=== PATIENT | male | born 1955 | race Caucasian/White ===

== ENCOUNTER → 2017-09-16 01:22 | Outpatient (CLI) | payer OTHER, SELFPAY ==
--- NOTE | 2017-09-16 13:30 | SCREENCT_ITS ---
SYMPTOM/DIAGNOSIS: PERSONAL H/O NICOTENE DEPENDENCE, Z87.891, COPD, J44.9 LOW DOSE LUNG SCREENING CHEST CT: A noncontrast CT scan of the chest was performed according to the lung cancer screening protocol. Comparison examination is 10/02/16. There is atherosclerosis of the thoracic aorta but no aneurysmal dilatation is seen. Heart size is within normal limits. No significant pericardial effusion is present. Coronary artery calcifications are identified. No significant axillary, mediastinal or hilar adenopathy is seen on this noncontrast examination. No pleural effusion or pneumothorax is identified. The upper abdominal images show stones in the gallbladder. Severe centrilobular emphysematous changes are present in the lungs. No pulmonary nodules are identified. No acute infiltrates are seen. Degenerative changes are present in the spine. IMPRESSION: 1. No evidence of a pulmonary nodule. 2. Severe emphysematous changes in the lungs. 3. Cholelithiasis. cLung-RAD Category: Lung RADS Category 1- Negative
== END ==
PROVIDERS: PCP Nurse Practitioner; Visit Provider Internal Medicine
DX: Z12.2 Encounter for screening for malignant neoplasm of respiratory organs (principal); J44.9 Chronic obstructive pulmonary disease, unspecified; Z87.891 Personal history of nicotine dependence; J43.9 Emphysema, unspecified; K80.20 Calculus of gallbladder without cholecystitis without obstruction
CPT/HCPCS: G0297

== ENCOUNTER → 2017-09-17 07:50 | Outpatient (CLI) | payer OTHER, SELFPAY ==
[2017-09-17 09:12] LABS: Anion Gap 8.2 mmol/L (3-11); BUN 13 mg/dL (7-18); CO2 29.8 mmol/L (21.0-32.0); CREATININE 1.09 mg/dL (0.70-1.30); Calcium 9.2 mg/dL (8.5-10.1); Chloride 103 mmol/L (98-107); Cholesterol 165 mg/dL (50-200); Glucose 89 mg/dL (70-100); HDL Cholesterol 83 mg/dL (40-60); LDL CHOLESTEROL 65 mg/dL (<100); Sodium 141 mmol/L (136-145); Triglyceride 66 mg/dL (30-150)
== END ==
PROVIDERS: PCP Nurse Practitioner; Visit Provider Nurse Practitioner
DX: E78.5 Hyperlipidemia, unspecified (principal); I10 Essential (primary) hypertension; R79.9 Abnormal finding of blood chemistry, unspecified
CPT/HCPCS: 36415; 80048; 80061; 83721

== ENCOUNTER 2018-03-17 14:43 | Outpatient (CLI) | payer OTHER, SELFPAY ==
[2018-03-17 16:15] LABS: ALT 41 U/L (12-78); AST 29 U/L (15-37); Albumin 2.9 g/dL (3.4-5.0); Alkaline Phosphatase 123 U/L (46-116); Anion Gap 6.6 mmol/L (3-11); BUN 15 mg/dL (7-18); Bilirubin, Total 0.2 mg/dL (0.2-1.0); CO2 34.4 mmol/L (21.0-32.0); CREATININE 0.88 mg/dL (0.70-1.30); Calcium 9.2 mg/dL (8.5-10.1); Chloride 101 mmol/L (98-107); Creatine Kinase 82 U/L (39-308); Glucose 109 mg/dL (70-100); Potassium 3.3 mmol/L (3.5-5.1); Sodium 142 mmol/L (136-145); Total Protein 6.5 g/dL (6.4-8.2)
== END 2018-03-17 15:03 ==
PROVIDERS: PCP Nurse Practitioner; Visit Provider Nurse Practitioner
DX: I10 Essential (primary) hypertension (principal); R25.2 Cramp and spasm; J44.9 Chronic obstructive pulmonary disease, unspecified; Z79.899 Other long term (current) drug therapy
CPT/HCPCS: 36415; 80053; 82550; 83735

== ENCOUNTER 2018-04-11 10:35 | Outpatient (REF) | payer OTHER, SELFPAY ==
[2018-04-12 11:25] LABS: Campylobacter PCR SEE COMMENTS; Salmonella PCR SEE COMMENTS; Shiga Toxin PCR SEE COMMENTS; Shigella/Enteroinvasive Ecoli SEE COMMENTS
== END 2018-04-11 10:55 ==
LOC: LBN 10:35
PROVIDERS: PCP Nurse Practitioner; Visit Provider Nurse Practitioner
DX: R19.7 Diarrhea, unspecified (principal)
CPT/HCPCS: 87505; 83630; 87177; 87324

== ENCOUNTER 2018-04-11 12:40 | Outpatient (REF) | payer OTHER, SELFPAY | END 2018-04-11 13:00 | LOC: LBN 12:40 | PROVIDERS: PCP Nurse Practitioner; Visit Provider Nurse Practitioner | DX: R19.7 Diarrhea, unspecified (principal) ==

== ENCOUNTER 2018-04-16 10:15 | Outpatient (CLI) | payer OTHER, SELFPAY ==
[2018-04-16 11:38] LABS: Anion Gap 8.2 mmol/L (3-11); BUN 21 mg/dL (7-18); CO2 30.8 mmol/L (21.0-32.0); CREATININE 1.03 mg/dL (0.70-1.30); Calcium 9.6 mg/dL (8.5-10.1); Chloride 103 mmol/L (98-107); Glucose 94 mg/dL (70-100); Potassium 3.4 mmol/L (3.5-5.1); Sodium 142 mmol/L (136-145)
== END 2018-04-16 10:35 ==
PROVIDERS: PCP Nurse Practitioner; Visit Provider Nurse Practitioner
DX: E87.6 Hypokalemia (principal); R19.7 Diarrhea, unspecified
CPT/HCPCS: 36415; 80048

== ENCOUNTER 2018-09-18 01:28 | Outpatient (CLI) | payer OTHER, SELFPAY ==
--- NOTE | 2018-09-18 12:00 | DI.CTLCSR_ITS ---
SYMPTOM/DIAGNOSIS: NICOTINE DEPENDENCE, F17.[address] LOW DOSE LUNG CANCER SCREENING: CT examination of the chest was performed utilizing low dose lung cancer screening protocol. Images obtained through the upper abdomen show grossly unremarkable appearance of visualized portions of liver, spleen and adrenals. There are severe pulmonary emphysematous changes, predominantly centrilobular. There are areas of scarring in the right upper lobe posteriorly which appear essentially unchanged in comparison with previous examination of 09/16/2017. There is a new area of nodularity with somewhat irregular border measuring about 8 by 9 by 10 mm. in diameter in the left upper lobe. This was not present on the previous examination. No additional new intrapulmonary nodule is seen. No pleural effusion. No mediastinal or hilar adenopathy. Tracheobronchial tree appears intact. No pleural effusion is seen. CONCLUSION: New 8-10 mm. in diameter left upper lobe intrapulmonary nodule. Lung rads, category 4B, suspicious nodule. Additional diagnostic testing or tissue sampling recommended. PET CT or biopsy should be considered. Lung-RAD Category: Lung RADS Category 4B- Suspicious
== END 2018-09-18 01:48 ==
PROVIDERS: PCP Nurse Practitioner; Visit Provider Internal Medicine
DX: Z12.2 Encounter for screening for malignant neoplasm of respiratory organs (principal); F17.200 Nicotine dependence, unspecified, uncomplicated; R91.1 Solitary pulmonary nodule
CPT/HCPCS: G0297

== ENCOUNTER 2019-03-05 01:42 | Outpatient (CLI) | payer OTHER, SELFPAY ==
--- NOTE | 2019-03-05 09:20 | DI.RAD_ITS ---
EXAM: RF BARIUM SWALLOW CLINICAL HISTORY: H/O DIAPHRAGMATIC HERNIA, PERFORM ESOPHAGEAL MANOMETRY FOR EVIDENCE TECHNIQUE: 2D and realtime digital imaging was performed. Fluoro time: 124 sec, 10.1 mGy COMPARISON: CHEST 2 VIEWS PA,LAT from 06/11/2017 FINDINGS: Initial plain film of the chest reveals hyperinflated lungs suggesting underlying COPD. No infiltrat es, effusions or pneumothoraces are present. Esophagus: The esophagus is patent with no evidence for erosions, fold thickening, strictures, or ma sses. Tertiary contractions are appreciated. No gastroesophageal reflux was identified during the ex amination. There was a small hiatal hernia noted. There was no aspiration during the examination. IMPRESSION: Small hiatal hernia. No gastroesophageal reflux.
[2019-03-05] MEDS: Barium Sulfate 60% W/V 355 ML BTL PO (10:06)
== END 2019-03-05 02:02 ==
PROVIDERS: PCP Nurse Practitioner; Visit Provider Thoracic Surgery (Cardiothoracic Vascular Surgery)
DX: K44.9 Diaphragmatic hernia without obstruction or gangrene (principal); J44.9 Chronic obstructive pulmonary disease, unspecified
CPT/HCPCS: 74221; J3490

== ENCOUNTER 2019-03-23 01:24 | Outpatient (CLI) | payer OTHER, SELFPAY ==
--- NOTE | 2019-03-23 13:41 | DI.CT_ITS ---
EXAM: CT CHEST WO CLINICAL HISTORY: COPD, J44.9, REEVALUATE LT UPPER LOBE DENSITY TECHNIQUE: Noncontrast CT CHEST LUNG CANCER SCREEN from 09/18/2018 FINDINGS: There is an area of nodularity located at the branching point of vessels in the left upper lobe. Th e findings appear somewhat less prominent when compared with the previous exam. The findings may rep resent an area of scarring. Similar appearing scarring is seen in the right upper lobe both anterior ly and posteriorly. Severe underlying emphysematous changes are seen. There are no new nodules or a reas of infiltration. The aorta is calcified but normal in diameter. There are coronary artery calc ifications. The heart size is normal. No adenopathy is seen. There are no pleural or pericardial e ffusions. IMPRESSION: Stable appearance or slightly decreased prominence of an area of nodularity in the left upper lobe w hich may represent scarring at a vessel branch point. A six-month follow-up exam could be considered .
== END 2019-03-23 01:44 ==
PROVIDERS: PCP Nurse Practitioner; Visit Provider Internal Medicine
DX: J44.9 Chronic obstructive pulmonary disease, unspecified (principal); R91.8 Other nonspecific abnormal finding of lung field; J43.8 Other emphysema; J98.4 Other disorders of lung
CPT/HCPCS: 71250

== ENCOUNTER 2019-11-26 01:42 | Outpatient (CLI) | payer OTHER, MEDICARE, SELFPAY ==
--- NOTE | 2019-11-26 07:00 | DI.US_ITS ---
EXAM: US AAA SCREENING CLINICAL HISTORY: SCREENING FOR AAA,SMOKER,PERIPHERAL VASCULAR DISEASE,Z13.6 COMPARISON: No exams were available for comparison FINDINGS: Abdominal Aorta: Proximal: 2.4 x 2.5 cm Mid: 2.4 x 2.7 cm Distal: 2.1 x 1.9 cm Iliac's: Right: 1.1 x 1.1 cm Left: 1.1 x 1.1 cm Atherosclerosis. IMPRESSION: No evidence of abdominal aortic aneurysm. DATA REPOSITORY:
== END 2019-11-26 02:02 ==
PROVIDERS: PCP Nurse Practitioner; Visit Provider Family Medicine
DX: F17.210 Nicotine dependence, cigarettes, uncomplicated (principal); Z13.6 Encounter for screening for cardiovascular disorders
CPT/HCPCS: 76706

== ENCOUNTER 2020-03-24 01:29 | Outpatient (CLI) | payer OTHER, MEDICARE, SELFPAY ==
--- NOTE | 2020-03-24 | DI.CTLCSR_ITS ---
EXAM: CT CHEST LUNG CANCER SCREEN CLINICAL HISTORY: SCREENING FOR LUNG CA, FORMER SMOKER, Z87.891 TECHNIQUE: Imaging Protocol: Axial computed tomography images with coronal and sagittal reformatted images were created and reviewed COMPARISON: CT CT CHEST WO from 03/23/2019 FINDINGS: Tracheobronchial tree: Patent where visualized. Mediastinum and Mahnaz: No dominant adenopathy or fluid collection. Pulmonary parenchyma: No consolidation or dominant measurable mass. Severe emphysematous changes, gre atest in the upper lobes. Multi focal areas of scarring, greatest posteriorly in the right upper lob e... Lung Nodules: None. Pleura: No effusion or pneumothorax. Heart: The heart is not dilated. coronary artery calcifications are seen. Aorta: Thoracic aorta non-dilated. Calcification Upper abdomen: Cholelithiasis Bones: Degenerative disc changes. Soft Tissues: Unremarkable. IMPRESSION: No suspicious pulmonary nodules. Severe emphysematous changes and multifocal areas of scarring. Category Lung RADS Cat 1 - Negative: No nodules and definitely benign nodules Lung-RADS 1.0 CATEGORIES: Category 0 - Prior chest CT exam(s) being located for comparison. Category 1 - Annual screening in 12 months. No nodules or definitely benign nodules. Category 2 - Annual screening in 12 months. Benign appearance. Nodules with low likelihood of becomin g active cancer. Category 3 - 6-month follow-up. Probably benign. Short-term follow-up suggested. Nodules with low lik elihood of becoming active cancer. Category 4A - 3-month follow-up and CT/PET if >8 mm in size. Suspicious finding. Findings which requi re additional testing. Category 4B - Findings which require additional testing and tissue sampling. Suspicious finding. C Added to Any of the Above - History of prior lung cancer screening. S Added to Any of the Above - Significant unexpected other finding. RADIATION DOSE DELIVERED: 78.92mGy.cm Total DLP DATA REPOSITORY: All CT scans at this facility are submitted to the National Radiology Data Registry (NRDR) Dose Index Registry (DIR) with the [employer] (ACR). RADIATION OPTIMIZATION: All CT scans at this facility use at least one of these dose optimization te chniques: automated exposure control; mA and/or kV adjustment per patient size (includes targeted exa ms where dose is matched to clinical indication); or iterative reconstruction.
== END 2020-03-24 01:30 ==
LOC: DI 01:30
PROVIDERS: PCP Nurse Practitioner; Visit Provider Internal Medicine
DX: Z87.891 Personal history of nicotine dependence (principal)
CPT/HCPCS: 71271

== ENCOUNTER 2020-11-29 06:31 | Outpatient (CLI) | payer OTHER, MEDICARE, SELFPAY ==
[2020-11-29] MEDS: Inhaler, Assist Device 1 EACH MC (11:20)
[2020-11-29] MEDS: Albuterol HFA 18 GM 200 PUFF INH IH (11:20)
--- NOTE | 2020-11-29 17:19 | W.PFT ---
Date of service: 11/29/20 Time of Service: 10:05 Pulmonary Function Test Result Requesting Provider [place] Indications: COPD Interpretation Spirometry: There is very severe airflow limitation. There is a low FVC. There is a significant bronchodilator effect. Lung Volumes: There is evidence of severe air trapping and hyperinflation. Diffusion Capacity: The diffusion is reduced Airway Pressure: Airways resistance is elevated Impression Very severe airflow limitation with air trapping and hyperinflation as well as a reduced diffusion and a positive bronchodilator response. Note: When compared to 11/18/2020 the FEV1 and FVC have not significantly changed. Clinical Correlation therefore is recommended.
== END 2020-11-29 06:32 | disposition home or self-care (01) ==
PROVIDERS: PCP Nurse Practitioner; Visit Provider Student in an Organized Health Care Education/Training Program
DX: J44.9 Chronic obstructive pulmonary disease, unspecified (principal); R06.09 Other forms of dyspnea; Z72.0 Tobacco use; Z87.891 Personal history of nicotine dependence; Z57.5 Occupational exposure to toxic agents in other industries; R94.2 Abnormal results of pulmonary function studies
CPT/HCPCS: 94060; 94726; 94729

== ENCOUNTER 2020-12-02 01:57 | Outpatient (CLI) | payer OTHER, MEDICARE, SELFPAY ==
[2020-12-02 08:16] LABS: Abs Immature Grans 0.02 10^3/uL (0.0-0.06); Absolute Basophil Count 0.07 10^3/uL (0.0-0.2); Absolute Eosinophil Count 0.37 10^3/uL (0.0-0.7); Absolute Lymphocyte Count 1.91 10^3/uL (1.2-3.4); Absolute Monocyte Count 0.62 10^3/uL (0.1-0.8); Absolute Neutrophil Count 4.24 10^3/uL (1.2-6.7); Eosinophils % 5.1; HCT 41.8 % (40.0-50.0); HGB 13.8 g/dL (13.5-17.5); Immature Grans % 0.3; Lymphocytes % 26.4; MCH 29.5 pg (27.0-33.0); MCV 89.3 fL (80-95); MPV 9.2 fL (8.0-11.0); Monocytes % 8.6; Neutrophils % 58.6; Nucleated RBC 0 %; Platelet Count 282 10^3/uL (130-400); RBC 4.68 10^6/uL (4.36-5.78); RDW 12.6 % (11.8-14.1); RDW-SD 41.1 fL; WBC 7.23 10^3/uL (4.4-10.8)
[2020-12-02 08:44] LABS: Hemoglobin A1C 5.9 % (<5.7)
[2020-12-02 09:03] LABS: ALT 49 U/L (16-63); AST 29 U/L (15-37); Albumin 3.7 g/dL (3.4-5.0); Alkaline Phosphatase 100 U/L (46-116); Anion Gap 7.7 mmol/L (3-11); BUN 25 mg/dL (7-18); Bilirubin, Total 0.3 mg/dL (0.2-1.0); CO2 31.3 mmol/L (21.0-32.0); CREATININE 1.3 mg/dL (0.70-1.30); Calcium 9.2 mg/dL (8.5-10.1); Calculated LDL 75 mg/dL (<100); Chloride 105 mmol/L (98-107); Cholesterol 163 mg/dL (<200); Estimated GFR 55.23 (mL/min/1.73m2); Glucose 94 mg/dL (74-106); HDL Cholesterol 77 mg/dL (40-60); Potassium 3.5 mmol/L (3.5-5.1); Sodium 144 mmol/L (136-145); Total Protein 6.8 g/dL (6.4-8.2); Triglyceride 56 mg/dL (<150)
[2020-12-02 17:15] LABS: PSA, Screening <0.1 ng/mL (0.0-4.5)
== END 2020-12-02 01:58 | disposition home or self-care (01) ==
LOC: LBO 01:57
PROVIDERS: PCP Nurse Practitioner; Visit Provider Nurse Practitioner
DX: E78.5 Hyperlipidemia, unspecified (principal); R73.01 Impaired fasting glucose; I10 Essential (primary) hypertension; J45.909 Unspecified asthma, uncomplicated; Z85.46 Personal history of malignant neoplasm of prostate
CPT/HCPCS: 36415; 80053; 80061; 84153; 83036; 85025

== ENCOUNTER → 2021-04-11 21:27 | Outpatient (CLI) | payer OTHER, MEDICARE, SELFPAY ==
--- NOTE | 2021-04-11 14:15 | DI.RAD_ITS ---
Exam(s) XR RIBS RT W PA LAT CHEST EXAM: XR RIBS RT W PA LAT CHEST CLINICAL HISTORY: R lower rib pain after a fall R07.81 PLEURODYNIA TECHNIQUE: 2D digital imaging was performed. COMPARISON: CR,RF RF BARIUM SWALLOW from 03/05/2019 FINDINGS: MEDIASTINUM: Normal. HEART: Normal. PULMONARY VASCULATURE: Normal. LUNGS: Clear. The lungs are hyperinflated consistent with underlying COPD. PLEURAL SPACE: No pleural effusion or pneumothorax. BONE:Within normal limits for the patient's age. There is an orthopedic screw again seen in an old h ealed left clavicular fracture. RIGHT RIBS: Normal. OTHER FINDINGS:Normal. IMPRESSION: 1. No acute pulmonary findings. 2. Unremarkable right ribs. DATA REPOSITORY: RADIATION DOSE DELIVERED:
== END ==
PROVIDERS: PCP Nurse Practitioner; Visit Provider Family Medicine
DX: R07.81 Pleurodynia (principal); J44.9 Chronic obstructive pulmonary disease, unspecified
CPT/HCPCS: 71046; 71100

== ENCOUNTER 2021-08-03 19:54 | Inpatient (IN) | payer OTHER, MEDICARE, SELFPAY ==
[2021-08-03] VITALS (69 sets, daily range): BP systolic 116–201; BP diastolic 75–132; PULSE 73–122; RESP 21–34; TEMP 36.4; O2SAT 90–96
--- NOTE | 2021-08-03 20:15 | DI.CT_ITS ---
Exam(s) CT HEAD CERVICAL SPINE WO EXAM: CT HEAD CERVICAL SPINE WO CLINICAL HISTORY: fall, pain. TECHNIQUE: Imaging Protocol: Axial computed tomography images with coronal and sagittal reformatted images were created and reviewed COMPARISON: No exams were available for comparison FINDINGS: CT Head: Ventricles and Extra axial spaces: Normal in size and morphology for the patient's age. Hemorrhage: None. Cerebral parenchyma: Normal. Midline shift: None. Brainstem/Cerebellum: Normal. Calvarium: Normal. Visualized Paranasal sinuses/Mastoids: Clear. Soft Tissues: Unremarkable. CT Cervical Spine: Bones: No acute fracture or subluxation. Degenerative changes are seen in the spine. 2-3 mm anteroli sthesis of C2 on C3 is noted. Soft Tissues: Unremarkable. Lung Apices: There is a small left apical pneumothorax. Moderately severe centrilobular emphysematou s changes are seen in the lung apices. IMPRESSION: 1. No acute intracranial process. 2. No acute fracture or subluxation in the cervical spine. 3. Small left apical pneumothorax. RADIATION DOSE DELIVERED: 1,432.27mGy.cm Total DLP DATA REPOSITORY: All CT scans at this facility are submitted to the National Radiology Data Registry (NRDR) Dose Index Registry (DIR) with the [employer] (ACR). RADIATION OPTIMIZATION: All CT scans at this facility use at least one of these dose optimization te chniques: automated exposure control; mA and/or kV adjustment per patient size (includes targeted exa ms where dose is matched to clinical indication); or iterative reconstruction.
--- NOTE | 2021-08-03 20:15 | DI.CT_ITS ---
Exam(s) CT CHEST/ABD/PEL WO CT THORACIC LUMBAR SPINE REC EXAM: CT CHEST/ABD/PEL WO CLINICAL HISTORY: fall, pain TECHNIQUE: Imaging Protocol: Axial computed tomography images with coronal and sagittal reformatted images were created and reviewed COMPARISON: US ABDOMEN ULTRASOUND (P) from 12/01/[address] CHEST LUNG CANCER SCREEN from 03/27/[address] THORACIC LUMBAR SPINE REC from 08/03/2021 FINDINGS: CHEST: Tracheobronchial tree: Patent where visualized. Pulmonary parenchyma: No consolidation or dominant measurable mass. Marked centrilobular emphysematou s changes are present. There is unchanged scarring in the posterior aspect of the right upper lobe. Mediastinum and Mahnaz: No dominant adenopathy or fluid collection. The esophagus is unremarkable. Thyroid gland: Unremarkable. Pleura: There is a small left pleural effusion. There is a large left pneumothorax. No right pneumoth orax or pleural effusion is present. Heart: The heart is not dilated. Coronary artery calcifications are present. No pericardial effusion. Aorta: Thoracic aorta non-dilated. Atherosclerosis. Lymph nodes: Within normal limits. Bones:Within normal limits for the patient's age. Old healed right rib fractures are present. There are multiple acute mildly displaced left rib fractures seen laterally and posteriorly. Soft tissues: Subcutaneous emphysema is seen along the left lateral chest wall. Thoracic spine recons: No acute fracture or subluxation is seen in the thoracic spine. ABDOMEN: Liver: Normal density. No measurable mass. Gallbladder and Biliary Tract: Cholelithiasis. No biliary ductal dilatation. Pancreas: Normal density, no abnormal calcifications or inflammatory process. Spleen: Normal. Adrenals: No masses seen. Kidneys: Normal size, contour and axis. No radiodense stones or obstructive uropathy. There are hypod ensities seen in both kidneys likely reflecting cysts. Abdominal Aorta: Abdominal portion non-dilated. Atherosclerosis is present. Bowel: There is no evidence of obstruction or wall thickening. There is diverticulosis seen in the co gasper, but no evidence of acute diverticulitis. There is a left inguinal hernia containing an unremarka ble loop of sigmoid colon. No evidence of obstruction is seen. There is a right inguinal hernia conta ining an unremarkable loop of small bowel. No evidence of obstruction or strangulation. Appendix is u nremarkable. Peritoneal Cavity: No ascites, collection or mesenteric inflammatory response. No free air. Lymph Nodes: Within normal limits. Bones: Within normal limits for the patient's age. Postsurgical changes are seen at L4 and L5. Soft Tissues: There is edema seen in the soft tissues along the left lateral abdominal wall which may represent a contusion. Lumbar spine recons: Degenerative changes are seen in the lumbar spine. No acute fracture or subluxat ion. Postsurgical changes are seen at L4 and L5. PELVIS: Bladder: Symmetric distention, no gross wall thickening. Reproductive Organs: Unremarkable as visualized. Lymph Nodes: Within normal limits. Bones: Within normal limits for the patient's age. IMPRESSION: 1. There is a large left pleural effusion. 2. There are multiple left rib fractures. Subcutaneous emphysema is seen in the left chest wall. 3. Small left pleural effusion. 4. Infiltration in the soft tissues along the left posterolateral wall which may represent a contusio n. 5. No acute abdominal pelvic organ injury. 6. No acute fracture or subluxation in the thoracic or lumbar spine. RADIATION DOSE DELIVERED: 768.41 mGy.cm Total DLP 768.41 mGy.cm Total DLP DATA REPOSITORY: All CT scans at this facility are submitted to the National Radiology Data Registry (NRDR) Dose Index Registry (DIR) with the [employer] (ACR). RADIATION OPTIMIZATION: All CT scans at this facility use at least one of these dose optimization te chniques: automated exposure control; mA and/or kV adjustment per patient size (includes targeted exa ms where dose is matched to clinical indication); or iterative reconstruction.
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
[2021-08-03 20:34] LABS: Abs Immature Grans 0.13 10^3/uL (0.0-0.06); Absolute Basophil Count 0.13 10^3/uL (0.0-0.2); Absolute Monocyte Count 1.07 10^3/uL (0.1-0.8); Absolute Neutrophil Count 17.89 10^3/uL (1.2-6.7); Basophils % 0.6; Eosinophils % 0.9; HCT 44.6 % (40.0-50.0); HGB 14.7 g/dL (13.5-17.5); Immature Grans % 0.6; Lymphocytes % 7.9; MCH 30.2 pg (27.0-33.0); MCV 92 fL (80-95); MPV 9.5 fL (8.0-11.0); Monocytes % 5.1; Neutrophils % 84.9; Platelet Count 293 10^3/uL (130-400); RBC 4.86 10^6/uL (4.36-5.78); RDW 12.6 % (11.8-14.1); RDW-SD 42.6 fL; WBC 21.07 10^3/uL (4.4-10.8)
[2021-08-03] MEDS: HYDROmorphone 2 MG/ML VIAL 1 MG IVP (20:34)
[2021-08-03] MEDS: Normal Saline Flush 10 ML SYR IVP ×2 (20:34→21:35)
[2021-08-03] MEDS: Normal Saline 1,000 ML 1000 ML IV (20:34)
[2021-08-03 20:38] LABS: Absolute Eosinophil Count 0.19 10^3/uL (0.0-0.7); Absolute Lymphocyte Count 1.66 10^3/uL (1.2-3.4)
[2021-08-03 20:44] LABS: ALT 43 U/L (16-63); AST 35 U/L (15-37); Alkaline Phosphatase 107 U/L (46-116); Anion Gap 6.7 mmol/L (3-11); BUN 25 mg/dL (7-18); Bilirubin, Total 0.4 mg/dL (0.2-1.0); CO2 31.3 mmol/L (21.0-32.0); Calcium 9.2 mg/dL (8.5-10.1); Chloride 100 mmol/L (98-107); Glucose 153 mg/dL (74-106); Potassium 3.5 mmol/L (3.5-5.1); Sodium 138 mmol/L (136-145); Total Protein 7.9 g/dL (6.4-8.2)
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
[2021-08-03] MEDS: HYDROmorphone 2 MG/ML VIAL 0.5 MG IVP (21:32)
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
--- NOTE | 2021-08-03 21:58 | NUR.NOTE ---
Pt sating 84% on Nc at 6L. This nurse placed pt on nrb at 10L, pt sating 95%. Lucinda SOTELO and MD Taylor aware,
--- NOTE | 2021-08-03 22:15 | DI.RAD_ITS ---
Exam(s) XR PORTABLE CHEST AP EXAM: XR PORTABLE CHEST AP CLINICAL HISTORY: s/p chest tube TECHNIQUE: 2D digital imaging was performed of the chest. One image was obtained. An AP view was ob tained. COMPARISON: CT CT THORACIC LUMBAR SPINE REC from 08/03/2021 FINDINGS: MEDIASTINUM: Normal. HEART: Normal. PULMONARY VASCULATURE: Normal. LUNGS: There is atelectasis in the left lung base. A left chest tube has been placed. There has bee n a significant decrease in size of the left pneumothorax. There does appear to be a tiny persistent pneumothorax present. PLEURAL SPACE: No pleural effusion. No right pneumothorax. BONE:Left rib fractures are present. OTHER FINDINGS:Subcutaneous air is seen along the left lateral chest wall. IMPRESSION: Interval placement of a left chest tube with significant decrease in size of the left pneumothorax. DATA REPOSITORY: RADIATION DOSE DELIVERED:
--- NOTE | 2021-08-03 23:07 | DI.VRAD_ITS ---
PROCEDURE INFORMATION: Exam: XR Chest Exam date and time: 08/03/2021 10:28 PM Age: 66 years old Clinical indication: Device placement; Chest tube TECHNIQUE: Imaging protocol: Radiologic exam of the chest. Views: 1 view. COMPARISON: CT CHEST/ABD/PEL WO 08/03/2021 8:59 PM FINDINGS: Lungs: Minimal stranded densities are seen laterally in the lower left lung field with no other consolidation or collapse detected. Pleural spaces: Significant interval decrease in left-sided pneumothorax following left-sided chest tube placement with small amounts of residual gas seen in the pleural space at the lateral left lung base. Heart/Mediastinum: Heart size is normal and vessel margins are sharply defined. Bones/joints: Chronic posttraumatic deformity noted involving the left clavicle. IMPRESSION: Significant interval decrease in left-sided pneumothorax following chest tube placement as above. Dictated and Authenticated by: Patrice Bullard MD. Ordering:ROBERTO Clayton MD
[2021-08-03 23:14] LABS: Source Nasal/Nares
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
[2021-08-03 23:59] LABS: Abs Immature Grans 0.11 10^3/uL (0.0-0.06); Absolute Lymphocyte Count 0.67 10^3/uL (1.2-3.4); Basophils % 0.3; Eosinophils % 0.1; HGB 13.3 g/dL (13.5-17.5); Immature Grans % 0.6; Lymphocytes % 3.7; MCH 30.4 pg (27.0-33.0); MCHC 32.4 % (32.0-36.0); MCV 94 fL (80-95); MPV 9.4 fL (8.0-11.0); Monocytes % 6.8; Neutrophils % 88.5; Platelet Count 225 10^3/uL (130-400); RBC 4.38 10^6/uL (4.36-5.78); RDW 12.5 % (11.8-14.1); RDW-SD 43.3 fL; WBC 18.12 10^3/uL (4.4-10.8)
[2021-08-04] VITALS (35 sets, daily range): BP systolic 88–153; BP diastolic 59–103; PULSE 74–111; RESP 2–24; TEMP 36.6–37.1; O2SAT 2–98; BMI 22.6
[2021-08-04 00:04] LABS: COVID-19 PCR Negative (Negative)
[2021-08-04 00:05] LABS: Absolute Basophil Count 0.05 10^3/uL (0.0-0.2); Absolute Eosinophil Count 0.02 10^3/uL (0.0-0.7); Absolute Monocyte Count 1.23 10^3/uL (0.1-0.8); Absolute Neutrophil Count 16.04 10^3/uL (1.2-6.7)
[2021-08-04 00:08] LABS: Anion Gap 4.1 mmol/L (3-11); BUN 26 mg/dL (7-18); CO2 31.9 mmol/L (21.0-32.0); CREATININE 1.2 mg/dL (0.70-1.30); Calcium 8.9 mg/dL (8.5-10.1); Chloride 103 mmol/L (98-107); Glucose 124 mg/dL (74-106); Potassium 4.4 mmol/L (3.5-5.1); Sodium 139 mmol/L (136-145)
[2021-08-04] MEDS: MORPHine 2 MG/ML SYR IVP ×3 (01:42→07:54)
[2021-08-04] MEDS: Acetaminophen 500 MG TAB 1000 MG PO ×4 (01:42→23:40)
[2021-08-04] MEDS: traZODone 100 MG TAB PO (01:42)
[2021-08-04] MEDS: Ondansetron 4 MG/2 ML VIAL IVP (01:42)
[2021-08-04] MEDS: Albuterol/Ipratropium 3 ML UPD VIAL UPD ×4 (01:43→23:41)
[2021-08-04] MEDS: Normal Saline Flush 10 ML SYR IVP ×5 (01:52→18:29)
[2021-08-04] MEDS: Normal Saline 1,000 ML 75 ML IV (03:44)
[2021-08-04] MEDS: traMADol 50 MG TAB PO (05:19)
[2021-08-04] MEDS: Ketorolac 15 MG/ML VIAL IVP ×4 (05:19→23:39)
[2021-08-04 06:49] LABS: Abs Immature Grans 0.04 10^3/uL (0.0-0.06); Absolute Basophil Count 0.05 10^3/uL (0.0-0.2); Absolute Eosinophil Count 0.01 10^3/uL (0.0-0.7); Absolute Lymphocyte Count 0.91 10^3/uL (1.2-3.4); Absolute Monocyte Count 0.87 10^3/uL (0.1-0.8); Absolute Neutrophil Count 9.37 10^3/uL (1.2-6.7); Basophils % 0.4; Eosinophils % 0.1; Immature Grans % 0.4; Lymphocytes % 8.1; MCH 29.6 pg (27.0-33.0); MCHC 31.6 % (32.0-36.0); MCV 94 fL (80-95); MPV 9.8 fL (8.0-11.0); Monocytes % 7.7; Neutrophils % 83.3; Platelet Count 211 10^3/uL (130-400); RBC 4.06 10^6/uL (4.36-5.78); RDW 12.8 % (11.8-14.1); RDW-SD 44.1 fL; WBC 11.25 10^3/uL (4.4-10.8)
[2021-08-04 07:08] LABS: Creatine Kinase 389 U/L (39-308)
[2021-08-04 07:19] LABS: Ferritin 81 ng/mL (26-388)
--- NOTE | 2021-08-04 08:31 | DI.RAD_ITS ---
Exam(s) XR CHEST 2V PA LATERAL EXAM: XR CHEST 2V PA LATERAL CLINICAL HISTORY: ptx TECHNIQUE: 2D digital imaging was performed of the chest. Two images were obtained. PA and lateral views were obtained. COMPARISON: CR,XR XR PORTABLE CHEST AP from 08/03/2021 FINDINGS: MEDIASTINUM: Normal. HEART: Normal. PULMONARY VASCULATURE: Normal. LUNGS: The left chest tube is in place. It is been slightly retracted compared to the examination fr om 08/03/2021. No demonstrable left pneumothorax is present. Atelectasis is seen in the lung bases b ilaterally. PLEURAL SPACE: No pleural effusion or pneumothorax. BONE:Within normal limits for the patient's age. OTHER FINDINGS:Subcutaneous gas is again seen along the left chest wall. IMPRESSION: Slight retraction of the left chest tube. No demonstrable pneumothorax. DATA REPOSITORY: RADIATION DOSE DELIVERED:
[2021-08-04] MEDS: Pantoprazole 40 MG TABCR PO (08:53)
[2021-08-04] MEDS: Verapamil C.R. 180 MG TABCR 360 MG PO (08:53)
[2021-08-04] MEDS: Escitalopram 10 MG TAB PO (08:53)
[2021-08-04] MEDS: Roflumilast 500 MCG TAB PO (08:54)
[2021-08-04] MEDS: Heparin 5,000 UNITS/ML VIAL 5000 UNITS SC ×2 (08:54→20:20)
--- NOTE | 2021-08-04 13:15 | DI.RAD_ITS ---
Exam(s) XR PORTABLE CHEST AP EXAM: XR PORTABLE CHEST AP CLINICAL HISTORY: chest tube disconnection TECHNIQUE: 2D digital imaging was performed of the chest. One image was obtained. An AP view was ob tained. COMPARISON: CR,XR XR PORTABLE CHEST AP from 08/03/2021 CR XR CHEST 2V PA LATERAL from 08/04/2021 FINDINGS: MEDIASTINUM: Normal. HEART: Normal. PULMONARY VASCULATURE: Normal. LUNGS: No focal consolidating infiltrates. PLEURAL SPACE: There does appear to be a very tiny left apical pneumothorax present. No right pneumo thorax or pleural effusion. BONE:Within normal limits for the patient's age. Left rib fractures are again seen. OTHER FINDINGS:The left chest tube appears to have been repositioned. Subcutaneous emphysema is agai n seen in the left lateral chest wall. IMPRESSION: Very tiny left apical pneumothorax. DATA REPOSITORY: RADIATION DOSE DELIVERED:
--- NOTE | 2021-08-04 14:06 | PDOC.ANES ---
Date of service: 08/04/21 Time of Service: 14:00 Anesthesia Note Report Anesthesia Note: Asked by Dr. Amaya to see and evaluate patient for erector spinae plane blocks for rib pain associated with recent traumatic fall. Patient met at bedside, and appeared to be resting comfortably. Discussed intervention of JESSICA blocks for pain control and discussed and risks and benefits at length with the patient given his pulmonary comorbidities. At this time, patient politely declines blocks, but was encouraged to reach out to surgery or anesthesia over the weekend if his wishes changed. Dr. Gilmore informed of patient's decision.
--- NOTE | 2021-08-04 15:20 | ANES.PREOP_ITS ---
General Info Date of Service Date Performed: 08/04/21 Height: 5 ft 4 in Weight: 59.87 kg Body Mass Index (BMI): 22.6 Meds Allergies and Home Medications Allergies Allergy/AdvReac Type Severity Reaction Status Date / Time Carbonic Anhydrase Inhibitors Allergy Unknown unknown Verified 08/03/21 20:10 propranolol HCl Allergy Unknown unknown Verified 08/03/21 20:10 [From Inderal LA] benzonatate AdvReac Intermediate palpitation Verified 08/03/21 20:10 s levofloxacin AdvReac Intermediate diarrhea Verified 08/03/21 20:10 prednisone AdvReac Intermediate high dose Verified 08/03/21 20:10 causes anxiety,insomnia, increased HR Sulfa (Sulfonamide AdvReac Intermediate GI cramps Verified 08/03/21 20:10 Antibiotics) Home Medication Medication Instructions Recorded triamcinolone acetonide 0.1 % 30 gm topical BID ##2 07/30/14 topical cream sildenafil 100 mg tablet (Viagra) 100 mg PO DAILY PRN #25 tabs 09/23/17 aspirin 81 mg tablet,delayed 81 mg PO DAILY 03/17/18 release multivitamin 1 tab PO DAILY 04/08/18 albuterol sulfate 1.25 mg/3 mL 1.25 mg (3 mL) inhalation QID PRN 06/16/19 solution for nebulization shortness of breath or wheezing #90 mL nebulizer and compressor #1 ea 10/10/20 Oxygen l inhalation PRN PRN ##1 10/18/20 acetaminophen 500 mg tablet 500 mg PO BID PRN 10/18/20 albuterol sulfate 90 mcg/actuation 2 puff inhalation Q4H PRN #2 puffs 10/18/20 aerosol inhaler doxycycline hyclate 100 mg 100 mg PO BID PRN copd flare #14 11/22/20 tablet,delayed release tabs escitalopram oxalate 10 mg tablet 10 mg PO DAILY #90 tab-caps 12/20/20 lorazepam 0.5 mg tablet 0.5 mg PO BID PRN dyspnea #60 tabs 01/30/21 fluticasone propionate 50 50 mcg NS DAILY #16 grams 03/03/21 mcg/actuation nasal spray,suspension omeprazole 20 mg tablet,delayed 20 mg PO DAILY #90 tabs 03/22/21 release tramadol 50 mg tablet 50 mg PO Q8H PRN pain #20 tabs 04/11/21 hydrochlorothiazide 25 mg tablet 25 mg PO DAILY #90 tab-caps 04/12/21 simvastatin 5 mg tablet 5 mg PO DAILY #90 tab-caps 04/12/21 roflumilast 500 mcg tablet 500 mcg PO DAILY #30 tabs 04/18/21 (Daliresp) dexamethasone 1 mg tablet 1 mg PO DAILY PRN SOB #12 tabs 04/24/21 tiotropium 2.5 mcg-olodaterol 2.5 2 inh inhalation DAILY #4 grams 05/15/21 mcg/actuation mist for inhalation (Stiolto Respimat) ipratropium 0.5 mg-albuterol 3 mg 3 ml UPD Q6H #180 mL 07/26/21 (2.5 mg base)/3 mL nebulization soln meloxicam 15 mg tablet 15 mg PO DAILY #30 tabs 07/31/21 verapamil 360 mg 24 hr 360 mg PO DAILY #90 caps 07/31/21 capsule,extended release Current Visit Medications: Current Medications Generic Name Dose Route Start Last Admin Trade Name Freq PRN Reason Stop Dose Admin Acetaminophen 1,000 mg 08/04/21 00:00 08/04/21 08:53 Acetaminophen 500 Mg Tab PO 1,000 mg Q8H MERLENE Administration Albuterol Sulfate 2.5 mg 08/03/21 23:36 Albuterol 2.5 Mg/3 Ml Inh Soln Vial UPD Q4H PRN PRN Albuterol Sulfate 2 puff 08/03/21 23:45 Albuterol Hfa 8 Gm 60 Puff Inh IH Q4H PRN PRN Albuterol/Ipratropium 3 ml 08/03/21 23:45 08/04/21 12:06 Albuterol/Ipratropium 3 Ml Upd Vial UPD 3 ml Q6H MERLENE Administration Device 1 each 08/03/21 23:45 Inhaler, Assist Device DIRECTED [facility] Escitalopram Oxalate 10 mg 08/04/21 08:30 08/04/21 08:53 Escitalopram 10 Mg Tab PO 10 mg DAILY MERLENE Administration Gabapentin 100 mg 08/04/21 14:00 Gabapentin 100 Mg Cap PO TID MERLENE Heparin Sodium (Porcine) 5,000 units 08/04/21 08:00 08/04/21 08:54 Heparin 5,000 Units/Ml Vial SC 5,000 units Q12H MERLENE Administration Sodium Chloride 500 mls @ 0 mls/hr 08/03/21 23:36 Saline 500ml Bag IV PRN PRN As Directed IV Miscellaneous Supplies 1 each 08/03/21 23:45 Iv Access IV DIRECTED MERLENE Ketorolac Tromethamine 15 mg 08/03/21 06:00 08/04/21 12:13 Ketorolac 15 Mg/Ml Vial IVP 08/08/21 05:59 15 mg Q6H MELRENE Administration Lidocaine 2 patch 08/04/21 08:30 08/04/21 09:00 Lidocaine 5% Patch TP Not Given DAILY MERLENE Lorazepam 0.5 mg 08/03/21 23:59 Lorazepam 0.5 Mg Tab PO BID PRN PRN dyspnea Metaxalone 800 mg 08/03/21 23:52 Metaxalone 800 Mg Tab PO TID PRN PRN Miscellaneous 2 each 08/04/21 20:00 Lidocaine Patch Removal TP Q24H MERLENE Morphine Sulfate 2 mg 08/03/21 23:36 08/04/21 07:54 Morphine 2 Mg/Ml Syr IVP 2 mg Q1H PRN PRN Administration Ondansetron HCl 4 mg 08/03/21 23:36 08/04/21 01:42 Ondansetron 4 Mg/2 Ml Vial IVP 4 mg Q4H PRN PRN Administration Pantoprazole Sodium 40 mg 08/04/21 08:30 08/04/21 08:53 Pantoprazole 40 Mg Tabcr PO 40 mg DAILY MERLENE Administration Polyethylene Glycol 17 gm 08/04/21 08:30 08/04/21 08:54 Polyethylene Glycol 3350 17 Gm Packet PO Not Given DAILY MERLENE Psyllium Hydrophilic Mucilloid 1 each 08/04/21 08:30 08/04/21 08:54 Psyllium Pkt PO Not Given DAILY [facility] Roflumilast 500 mcg 08/04/21 08:30 08/04/21 08:54 Roflumilast 500 Mcg Tab PO 500 mcg DAILY MERLENE Administration Sodium Chloride 0 ml 08/03/21 23:36 08/04/21 12:13 Normal Saline Flush 10 Ml Syr IVP 10 ml PRN PRN Administration Tramadol HCl 50 mg 08/03/21 23:52 08/04/21 05:19 Tramadol 50 Mg Tab PO 50 mg Q4H PRN PRN Administration Trazodone HCl 100 mg 08/03/21 23:41 08/04/21 01:42 Trazodone 100 Mg Tab PO 100 mg HS PRN PRN Administration Sleep Verapamil HCl 360 mg 08/04/21 08:30 08/04/21 08:53 Verapamil C.R. 180 Mg Tabcr PO 360 mg DAILY MERLENE Administration PFSH Active Problems Active Problems: Problem Status Onset Code Fall W19.XXXA Blunt head trauma S09.8XXA Blunt trauma of multiple sites of trunk T07.XXXA Pneumothorax on left J93.9 Multiple fractures of ribs of left side S22.42XA Pleural nodule R22.2 Rib pain on right side R07.81 Nicotine dependence, cigarettes, uncomplicated F17.210 Lung nodule R91.1 Pulmonary hypertension I27.20 Encounter for screening for malignant neoplasm of lung in former smoker who quit in past 15 years with 30 pack year history or greater Z12.2, Z87.891 History of prostate cancer Z85.46 Supplemental oxygen dependent Z99.81 Former smoker Z87.891 Screening for AAA (abdominal aortic aneurysm) Z13.6 POLST (Physician Orders for Life-Sustaining Treatment) Z78.9 Right facial numbness R20.0 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 BRANHMA Tobacco Smoking/Tobacco Use Status: Current-Occasional Tobacco Type: cigarettes Counseling given: provider counseling and counseling >10 minutes Alcohol Alcohol Intake: former Substance Use Substance use: Never Substance use type: does not use Vital Signs and Lab Results Vital Signs Most Recent Vital Signs in EMR: Most Recent Vital Signs Temp Pulse Resp BP Pulse Ox 36.9 C 89 18 109/70 94 08/04/21 14:50 08/04/21 14:50 08/04/21 14:50 08/04/21 14:50 08/04/21 14:50 Lab Results Result Diagrams: 08/04/21 06:02 08/03/21 23:51 Blood Type / Crossmatch: No Data to Display Complete Blood Count: White Blood Count 11.25 10^3/uL (4.4-10.8) H 08/04/21 06:02 Red Blood Count 4.06 10^6/uL (4.36-5.78) L 08/04/21 06:02 Hemoglobin 12.0 g/dL (13.5-17.5) L 08/04/21 06:02 Hematocrit 38.0 % (40.0-50.0) L 08/04/21 06:02 Platelet Count 211 10^3/uL (130-400) 08/04/21 06:02 Complete Metabolic Panel: Sodium Level 139 mmol/L (136-145) 08/03/21 23:51 Potassium Level 4.4 mmol/L (3.5-5.1) 08/03/21 23:51 Chloride Level 103 mmol/L (98-107) 08/03/21 23:51 Carbon Dioxide Level 31.9 mmol/L (21.0-32.0) 08/03/21 23:51 Blood Urea Nitrogen 26 mg/dL (7-18) H 08/03/21 23:51 Creatinine 1.2 mg/dL (0.70-1.30) 08/03/21 23:51 Estimated GFR/1.73 m2 >= 60.00 (mL/min/1.73m2) 08/03/21 23:51 Magnesium Level 2.0 mg/dL (1.8-2.4) 08/04/21 06:02 Calcium Level 8.9 mg/dL (8.5-10.1) 08/03/21 23:51 Albumin 4.0 g/dL (3.4-5.0) 08/03/21 20:25 Glucose Level 124 mg/dL (74-106) H 08/03/21 23:51 Liver Function Panel: Alanine Aminotransferase (ALT/SGPT) 43 U/L (16-63) 08/03/21 20: 25 Aspartate Amino Transf (AST/SGOT) 35 U/L (15-37) 08/03/21 20:25 Coagulation Panel: No Data to Display Cardiac Panel: Creatine Kinase 389 U/L (39-308) H 08/04/21 Arterial Blood Gas: No Data to Display Venous Blood Gas: No Data to Display Pancreas Panel: No Data to Display Thyroid Panel: No Data to Display Infectious Disease: Coronavirus (COVID-19)(PCR) Negative (Negative) 08/03/21 23:10 Coronavirus 2019 Source Nasal/Nares 08/03/21 23:10 Blood Cultures: No Data to Display Toxicology Panel: No Data to Display Anesthesia Assessment and Plan Anesthesia History Personal History: No History of Anesthesia Complications Family History: No Family History of Anesthesia Complications Exercise Tolerance Exercise Tolerance: Metabolic Equivalents<4 Pertinent Negatives Pertinent Negatives: No Symptoms of GERD, No Major Cardiovascular Symptoms or Complaints and No History of CVA/TIA Cardiac & Pulmonary Exam Cardiac Exam: Normal S1/S2 Heart Sounds Pulmonary Exam: Clear Bilateral Breath Sounds (left more diminished than right shallow breathes) Implantable Cardiac Device Does patient have a Pacemaker or an ICD?: No Airway Exam Known Difficult Airway: No Mallampati Class: 2 Mouth Opening: Normal (> 3cm) Thyromental Distance: Greater than 3 cm Neck Range of Motion: Full ROM Neck Circumference: Normal Teeth Condition: Normal Dentition ASA Classification ASA Score: ASA 3 Emergency Case?: Yes NPO Status NPO Status: Full Stomach Anesthesia Plan Resuscitation Status: Full Code Anesthesia Technique: Primary Nerve Block (Due to recent trauma, requested by general surgery. ) Airway Planned: Natural Airway Pain Management: Surgeon and patient request nerve block Monitors Used: Standard Monitors and POCUS
--- NOTE | 2021-08-04 16:10 | W.ANESNERVE ---
Nerve Block Single Injection Procedure Date and Time Date Performed: 08/04/21 Procedure Start: 15:54 Location Where Procedure Performed Procedure Location: Med/Surg (227) Reason Performed: Acute Pain Management Pain Diagnosis: Chest Pain, Rib Pain and Flank Pain Requesting Provider: Leah Amaya Timeout Performed Timeout Performed: Yes Monitoring Used Blood Pressure and SpO2 Sterility Sterility: Hand Hygiene, Surgical Cap, Surgical Mask, Sterile Gloves and Chlorhexidine Sedation Given During Procedure Sedation Given (Indicate Dose Given): No Sedation given Patient Mental Status Patient Mental Status: Awake Nerve Block 1st Nerve Block: Laterality: Left Block Type: Erector Spinae (Upper) (middle) Needle / Catheter Used: 100mm SonoPlex II Local Anesthetic Bolus (Indicate Dose Given): Lidocaine used for local infiltration of skin, Injected in 3-5ml increments after negative blood aspiration, Bupivacaine 0.25% Dose:: 20 ml and Exparel Dose:: 20 ml Additives (Indicate Dose Given): None Ultrasound: Sterile probe cover and gel used Ultrasound Image Saved?: Yes Nerve Stimulator: Not Used Paresthesia: None Post Procedure Pain score (0-10): 5 Procedure Tolerated: No Complications and Patient tolerated well Procedure Outcome: Successful Performed By: Edson Alicea
[2021-08-04] MEDS: Gabapentin 100 MG CAP PO ×2 (17:05→20:20)
--- NOTE | 2021-08-04 17:15 | W.PM.PROGNOT ---
Date of Service Date of service: 08/04/21 Time of Service: 15:15 Assessment and Plan Assessment and plan (1) Fall: Status: Acute (2) Blunt head trauma: Status: Acute (3) Blunt trauma of multiple sites of trunk: Status: Acute (4) Pneumothorax on left: Status: Acute Assessment and plan: -s/p chest tube placement by ER -Rib block today -PRN and scheduled anesthetics -AM chest x-ray reviewed; PM chest x-ray reviewed - repositioned? -Supplemental oxygen -Incentive spirometer use -Ambulation encouraged -PT/OT (5) Multiple fractures of ribs of left side: Status: Acute (6) Rib pain on right side: Status: Acute (7) Nicotine dependence, cigarettes, uncomplicated: Status: Acute (8) Lung nodule: Status: Acute (9) Pulmonary hypertension: Status: Acute (10) History of prostate cancer: Status: Acute (11) End stage chronic obstructive pulmonary disease: (12) IFG (impaired fasting glucose): (13) PVD (peripheral vascular disease): (14) Tobacco dependence: (15) Trigeminal neuralgia of right side of face: (16) Screening for AAA (abdominal aortic aneurysm): Status: Acute (17) Essential hypertension: Status: None (18) Ineffective esophageal motility: Status: Acute (19) Barretts esophagus: Status: Acute (20) Diaphragmatic hernia without obstruction or gangrene: Status: Acute (21) Low back pain with left-sided sciatica: Status: Acute (22) Erectile dysfunction: Status: Acute (23) Psoriasis with arthropathy: Status: Chronic (24) Hyperlipidemia: Status: Chronic (25) Peripheral vascular disease: Status: Chronic (26) Allergic rhinitis: Status: Chronic Subjective Subjective Patient reports: no new complaints, feels better, tolerating a regular diet and afebrile Exam Const General: no acute distress Orientation: alert HENMT Head: normal to inspection Ears: external ears normal General nose exam: external nose normal Mouth: moist mucous membranes Eyes General: appearance normal, both eyes and all related structures Neck Neck: normal visual inspection Resp Effort & Inspection: normal respiratory effort, able to speak in complete sentences and other (left sided chest tube in place no air leak) GI Palpation: soft and nontender Back/Spine/Pelvis Back: No ecchymosis Skin General skin exam: no rashes or lesions noted Neuro General: patient alert and patient oriented x3 Extrem General: normal to inspection Psych Mental Status: mental status grossly normal Objective Last Vital Signs Temp 98.4 F 08/04/21 14:50 Pulse 89 08/04/21 14:50 Resp 18 08/04/21 14:50 BP 109/70 08/04/21 14:50 Pulse Ox 94 08/04/21 14:50 Laboratory Results - last 24 hr 08/03/21 08/03/21 08/03/21 20:25 20:25 23:10 WBC 21.07 H RBC 4.86 Hgb 14.7 Hct 44.6 MCV 92 MCH 30.2 MCHC 33.0 RDW 12.6 Plt Count 293 MPV 9.5 Immature Gran % 0.6 Neutrophils % 84.9 Lymphocytes % 7.9 Monocytes % 5.1 Eosinophils % 0.9 Basophils % 0.6 Nucleated RBC % 0.0 Absolute Neutrophils 17.89 H Absolute Lymphocytes 1.66 Absolute Monocytes 1.07 H Absolute Eosinophils 0.19 Absolute Basophils 0.13 Sodium 138 Potassium 3.5 Chloride 100 Carbon Dioxide 31.3 Anion Gap 6.7 BUN 25 H Creatinine 1.0 Estimated GFR/1.73 m2 >= 60.00 Glucose 153 H Calcium 9.2 Magnesium Ferritin Total Bilirubin 0.4 AST 35 ALT 43 Alkaline Phosphatase 107 Creatine Kinase Total Protein 7.9 Albumin 4.0 COVID-19 Source Nasal/Nares SARS-CoV-2 (PCR) Negative 08/03/21 08/03/21 08/04/21 23:51 23:51 06:02 WBC 18.12 H RBC 4.38 Hgb 13.3 L Hct 41.0 MCV 94 MCH 30.4 MCHC 32.4 RDW 12.5 Plt Count 225 MPV 9.4 Immature Gran % 0.6 Neutrophils % 88.5 Lymphocytes % 3.7 Monocytes % 6.8 Eosinophils % 0.1 Basophils % 0.3 Nucleated RBC % 0.0 Absolute Neutrophils 16.04 H Absolute Lymphocytes 0.67 L Absolute Monocytes 1.23 H Absolute Eosinophils 0.02 Absolute Basophils 0.05 Sodium 139 Potassium 4.4 Chloride 103 Carbon Dioxide 31.9 Anion Gap 4.1 BUN 26 H Creatinine 1.2 Estimated GFR/1.73 m2 >= 60.00 Glucose 124 H Calcium 8.9 Magnesium Ferritin 81 Total Bilirubin AST ALT Alkaline Phosphatase Creatine Kinase Total Protein Albumin COVID-19 Source SARS-CoV-2 (PCR) 08/04/21 08/04/21 06:02 06:02 WBC 11.25 H RBC 4.06 L Hgb 12.0 L Hct 38.0 L MCV 94 MCH 29.6 MCHC 31.6 L D RDW 12.8 Plt Count 211 MPV 9.8 Immature Gran % 0.4 Neutrophils % 83.3 Lymphocytes % 8.1 Monocytes % 7.7 Eosinophils % 0.1 Basophils % 0.4 Nucleated RBC % 0.0 Absolute Neutrophils 9.37 H Absolute Lymphocytes 0.91 L Absolute Monocytes 0.87 H Absolute Eosinophils 0.01 Absolute Basophils 0.05 Sodium Potassium Chloride Carbon Dioxide Anion Gap BUN Creatinine Estimated GFR/1.73 m2 Glucose Calcium Magnesium 2.0 Ferritin Total Bilirubin AST ALT Alkaline Phosphatase Creatine Kinase 389 H Total Protein Albumin COVID-19 Source SARS-CoV-2 (PCR)
--- NOTE | 2021-08-04 18:29 | INITIAL_ITS ---
- If Service Date Differs Date of service: 08/04/21 Time of Service: 18:30 Care Management Initial Assess REASON FOR HOSPITALIZATION:: Blunt chest trauma, Rib FX, PTX PAST MEDICAL HISTORY/PAST SURGICAL HISTORY:: Patient fell off his 3 [address] and onto his left chest. He sustained multiple rib fractures and a pneumothorax. Chest tube was placed by the ER. C-spine was cleared by the ED. I did review all his CT scans. He will be admitted for pain management, close nursing observation and pulmonary toilet. Medical History (Updated 08/03/21 @ 21:40 by Forrest Taylor MD). End stage chronic obstructive pulmonary disease. IFG (impaired fasting glucose). PVD (peripheral vascular disease). Tobacco dependence. Trigeminal neuralgia of right side of face. Surgical History . collar bone surgery. Colonoscopy - MAC (05/03/17). L4-S1 laminectomy w/ rgt sided L4-5 fusion (06/20/15). Prostatectomy (~2008). ca. Repair, Rotator Cuff (03/14/16). RIGHT/ DR. BRANHAM PREVIOUS FUNCTIONAL STATUS/SOCIAL/FAMILY SUPPORTS:: 66 yo man who lives with his Seble in their home in [place]. They have 2 adult children and many grandchildren. He is now retired, but independent in community. He does use O2 at home prn. ADVANCE DIRECTIVES:: On file, [employer] as agent. Has patient been provided with info about the portal/API?: Yes Did the patient sign up for the portal?: Yes CODE STATUS:: DNR/DNI INSURANCE COVERAGE / FINANCIAL ISSUES:: [employer] [facility] CURRENT HOME/COMMUNITY SERVICES/EQUIPMENT:: Has nebulizer and O2 at home through [employer]. PRIMARY CARE PHYSICIAN:: Carline Muñiz POTENTIAL DISCHARGE NEEDS:: Follow up appointments. PATIENT/FAMILY EDUCATION NEEDS:: Review of discharge instructions, discuss Ask Me Three. ANTICIPATED BARRIERS TO DISCHARGE:: None identified. TRANSPORTATION:: Via private vehicle with . PLAN:: Anticipate Justin will return home once his pain is managed and he is medically cleared per MD. He will follow up with community providers and transport via private vehicle.
[2021-08-04] MEDS: LORazepam 0.5 MG TAB PO (21:46)
[2021-08-04] MEDS: Normal Saline 500 ML IV (21:46)
[2021-08-05] VITALS (54 sets, daily range): BP systolic 66–126; BP diastolic 37–77; PULSE 79–117; RESP 8–31; TEMP 37.1–37.2; O2SAT 15–100
[2021-08-05] MEDS: Ketorolac 15 MG/ML VIAL IVP (04:55)
[2021-08-05] MEDS: Albuterol/Ipratropium 3 ML UPD VIAL UPD (04:55)
[2021-08-05] MEDS: MORPHine 2 MG/ML SYR IVP (06:36)
[2021-08-05] MEDS: traMADol 50 MG TAB PO (06:37)
[2021-08-05] MEDS: Normal Saline Flush 10 ML SYR IVP (06:38)
[2021-08-05] MEDS: Normal Saline 1,000 ML 1000 ML IV (07:30)
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
[2021-08-05 07:50] LABS: BE -1 mmol/L (-2-3); HCO3 26 mmol/L (22-26); pCO2 58 mmHg (35-45); pH 7.26 (7.35-7.45); pO2 84 mmHg (80-105); sO2 96 % (95-98); tCO2 25 mmol/L (23-27)
--- NOTE | 2021-08-05 07:51 | W.PM.PROGNOT ---
Date of Service Date of service: 08/05/21 Time of Service: 07:52 Assessment and Plan Assessment and plan (1) Fall: Status: Acute (2) Blunt head trauma: Status: Acute (3) Blunt trauma of multiple sites of trunk: Status: Acute (4) Pneumothorax on left: Status: Acute Assessment and plan: -s/p chest tube placement by ER -AM chest x-ray with new hemothorax, no recurrent pneumothorax -Transfer to ICU; consult with [facility] for transfer -2 units uncrossed blood to be transfused STAT as no active type and screen was done prior -Appreciate hospitalist assistance; full labs pending -Rib block yesterday by anesthesia -PRN and scheduled anesthetics; hold toradol, mobic and heparin -Code status: COLST form full code; previously listed as DNR/DNI (5) Multiple fractures of ribs of left side: Status: Acute (6) Rib pain on right side: Status: Acute (7) Nicotine dependence, cigarettes, uncomplicated: Status: Acute (8) Lung nodule: Status: Acute (9) Pulmonary hypertension: Status: Acute (10) History of prostate cancer: Status: Acute (11) End stage chronic obstructive pulmonary disease: (12) IFG (impaired fasting glucose): (13) PVD (peripheral vascular disease): (14) Tobacco dependence: (15) Trigeminal neuralgia of right side of face: (16) Screening for AAA (abdominal aortic aneurysm): Status: Acute (17) Essential hypertension: Status: None (18) Ineffective esophageal motility: Status: Acute (19) Barretts esophagus: Status: Acute (20) Diaphragmatic hernia without obstruction or gangrene: Status: Acute (21) Low back pain with left-sided sciatica: Status: Acute (22) Erectile dysfunction: Status: Acute (23) Psoriasis with arthropathy: Status: Chronic (24) Hyperlipidemia: Status: Chronic (25) Peripheral vascular disease: Status: Chronic (26) Allergic rhinitis: Status: Chronic Subjective Subjective Interval history since last seen: called by hospitalist who was not consulted in regard to patient's worsening condition; >500cc blood from chest tube, desaturation to the 70-80's, requested STAT chest x-ray and chest tube tray to bedside Exam Const General: cooperative, acute distress moderate and respiratory, in distress moderate and respiratory, frail appearing and ill appearing Nutritional Appearance: thin HENMT Head: normal to inspection, normocephalic and atraumatic Chest Chest: abnormal inspection of the chest other (ecchymosis ), crepitus, tenderness and other (ecchymosis left posteriolateral chest wall) Resp Effort & Inspection: labored, respiratory distress, tachypneic and other (left chest tube with >500cc bloody drainage in the last hour) Cardio Rate: regular rate Rhythm: regular rhythm Skin General skin exam: ecchymosis (diffuse, worsening over left lateral chest wall) and other (chest tube in place) Neuro General: patient alert, patient awake and patient oriented x3 Objective Last Vital Signs Temp 99.0 F 08/05/21 03:25 Pulse 79 08/05/21 03:25 Resp 20 08/05/21 05:17 BP 126/77 08/05/21 05:26 Pulse Ox 96 08/05/21 05:17
[2021-08-05 07:52] LABS: FIO2 NRB %; FIO2L 15 L; Site Left Radial
--- NOTE | 2021-08-05 07:57 | PT.INNT ---
PT Notes Visit Reasons: Blunt Chest Trauma/Rib FX/PTX PT consult cancelled due to change in medical status.
--- NOTE | 2021-08-05 07:58 | W.EVENT ---
Date of service: 08/05/21 Time of Service: 07:58 Event Note: Responded to nursing notification of the patient getting acutely hypoxic to O2 sats in the 70s, dyspneic/tachypneic. 10 minutes prior, there was new bloody chest tube output noted, in total 325 cc so far. Stat CXR ordered. New pleural effusion observed at L base/L diaphragmatic border. The patient was placed on a nonrebreather. I notified Dr Goins who arrived at bedside. Patient is being transferred to the ICU. Stat labs ordered. The patient is also hypotensive with SBP in the 70s. He sometimes takes dexamethasone at home. Will give a bolus of dexamethasone 4 mg IV. Type and screen ordered for anticipated transfusion. Time Spent with Patient Time spent in critical care(minutes): 35 Time Spent Included: Coordination of care, Chart review, Documenting critically ill care, Time at immediate bedside, Discussing critically ill care with other medical staff and Discussing Hx and/or treatment with family
[2021-08-05] MEDS: Dexamethasone 4 MG/ML VIAL (08:00)
[2021-08-05 08:18] LABS: Abs Immature Grans 0.08 10^3/uL (0.0-0.06); Absolute Basophil Count 0.06 10^3/uL (0.0-0.2); Absolute Eosinophil Count 0.16 10^3/uL (0.0-0.7); Absolute Lymphocyte Count 1.19 10^3/uL (1.2-3.4); Basophils % 0.4; HCT 27.6 % (40.0-50.0); HGB 8.6 g/dL (13.5-17.5); Immature Grans % 0.5; Lymphocytes % 7.6; MCH 29.9 pg (27.0-33.0); MCHC 31.2 % (32.0-36.0); MCV 96 fL (80-95); MPV 9.7 fL (8.0-11.0); Monocytes % 6.3; Neutrophils % 84.2; Platelet Count 188 10^3/uL (130-400); RBC 2.88 10^6/uL (4.36-5.78); RDW 12.6 % (11.8-14.1); RDW-SD 43.9 fL; WBC 15.68 10^3/uL (4.4-10.8)
[2021-08-05 08:19] LABS: Absolute Monocyte Count 0.99 10^3/uL (0.1-0.8)
[2021-08-05 08:26] LABS: Anion Gap 6.3 mmol/L (3-11); BUN 40 mg/dL (7-18); CO2 26.7 mmol/L (21.0-32.0); CREATININE 1.6 mg/dL (0.70-1.30); Calcium 7.9 mg/dL (8.5-10.1); Chloride 107 mmol/L (98-107); Estimated GFR 43.33 (mL/min/1.73m2); Glucose 115 mg/dL (74-106); Potassium 4.1 mmol/L (3.5-5.1); Sodium 140 mmol/L (136-145)
--- NOTE | 2021-08-05 08:30 | DI.RAD_ITS ---
Exam(s) XR PORTABLE CHEST AP EXAM: XR PORTABLE CHEST AP CLINICAL HISTORY: ptx. TECHNIQUE: 2D digital imaging was performed. COMPARISON: CR XR PORTABLE CHEST AP from 08/04/2021 FINDINGS: Single AP portable view. Left large caliber chest tube is unchanged in position. Multiple displaced left-sided rib fractures are noted and there is now a prominent pleural based left-sided density consistent with pleural hemat ochoa-loculated pleural effusion adjacent to the displaced left-sided rib fractures. There is no pneum othorax. However, there is increasing infiltrate in the left lung base, either related to lung contu mars or infiltrate resulting from poor aeration in the left lower lobe. Subcutaneous emphysema over the left chest wall has not increased from yesterday. Heart size is upper normal. The mediastinum is not widened. \ IMPRESSION: Worsening left-sided findings as described above. Prominent pleural based density now evident which is most probably loculated pleural effusion-hematoma adjacent to the multiple displaced rib fractures . There is also infiltrate now developed in the left lower lobe as well as some independent layering left pleural effusion. There is no pneumothorax. Position of the left chest tube is unchanged. DATA REPOSITORY: RADIATION DOSE DELIVERED: All CT scans at this facility use at least one of these dose optimization techniques: automated exposure control; mA and/or kV adjustment per patient size (includes targeted e xams where dose is matched to clinical indication); or iterative reconstruction.
[2021-08-05 08:32] LABS: Lactate 1.4 mmol/L (0.6-1.4); Prothrombin Time 10.4 sec (9.3-11.0)
[2021-08-05 08:35] LABS: Diff Comment RBC Morph Reviewed; RBC Morphology Normal
--- NOTE | 2021-08-05 08:37 | DSE_ITS ---
Date of service: 08/05/21 Time of Service: 08:39 DS: Diagnosis Discharge Diagnosis (1) Traumatic hemo-pneumothorax: Status: Acute Asessment and Plan: -Chest tube in place, taken off suction as recommended by [facility] [place] [place]; >1L EBL meets criteria for thoracotomy -Transfuse 2 Units uncrossed blood STAT -DART transport to [facility] [place] [place], accepted in SICU Dr. Joiner -Full code on COLST; updated in chart and bedside. DART landing at 9am; will intubate. -2 additional units to be given en route -NRB with humidified oxygen -Chest tube to waterseal (2) Fall: Status: Acute (3) Blunt head trauma: Status: Acute (4) Blunt trauma of multiple sites of trunk: Status: Acute (5) Pneumothorax on left: Status: Acute (6) Multiple fractures of ribs of left side: Status: Acute (7) Rib pain on right side: Status: Acute (8) Nicotine dependence, cigarettes, uncomplicated: Status: Acute (9) Lung nodule: Status: Acute (10) Pulmonary hypertension: Status: Acute (11) History of prostate cancer: Status: Acute (12) End stage chronic obstructive pulmonary disease: (13) IFG (impaired fasting glucose): (14) PVD (peripheral vascular disease): (15) Tobacco dependence: (16) Trigeminal neuralgia of right side of face: (17) Screening for AAA (abdominal aortic aneurysm): Status: Acute (18) Essential hypertension: Status: None (19) Ineffective esophageal motility: Status: Acute (20) Barretts esophagus: Status: Acute (21) Diaphragmatic hernia without obstruction or gangrene: Status: Acute (22) Low back pain with left-sided sciatica: Status: Acute (23) Erectile dysfunction: Status: Acute (24) Psoriasis with arthropathy: Status: Chronic (25) Hyperlipidemia: Status: Chronic (26) Peripheral vascular disease: Status: Chronic (27) Allergic rhinitis: Status: Chronic Discharge Plan Disposition Patient Disposition: [facility] Condition: Serious Discharge Details Reason For Visit: Blunt Chest Trauma/Rib FX/PTX Admit Date/Time: 08/03/21 23:46 Admit Provider: Leah Amaya Attending Provider: Leah Amaya Primary Care Provider: Carline Muñiz Hospital Course Hospital Course: Patient was admitted to the hospital after coming to the ER after falling off of a [address] He underwent full CT scans revealing multiple left sided rib fractures as well as large left pneumothorax and likely hemothorax. A chest tube was placed by the ER and pneumothorax resolved. Yesterday his chest tube was repositioned by another provider and subsequent x-ray was taken. He also underwent rib block yesterday with anesthesia. He received a 500cc bolus last night 08/04 for blood pressure in the 90's systolic but otherwiese asymptomatic. This morning he acutely decompensated having significant bloody drainage from the chest tube >1L in about 45 minutes and continuing. He did not have any active type and cross so 2 units uncrossed blood was ordered. STAT chest x ray revealed chest tube was in place, hemothorax but no recurrent pneumothorax. He was transferred to our ICU for resusscitation. [facility] [place] [place] trauma was consulted for transfer and patient was accepted. All images were pushed to [facility] [place] [place]. DART is picking up patient and will intubate for transfer, 2 units PRBC and FFP will be available for them. Chest tube is on waterseal. Patient's remained at the bedside throughout the entire encounter. COLST form FULL CODE. Code status changed in computer. 60 minutes spent on critical care time and at bedside Home Meds and New Rx's Prescriptions: Continued multivitamin tablet 1 tab PO DAILY albuterol sulfate 1.25 mg/3 mL solution for nebulization 1.25 mg IH QID PRN (Reason: shortness of breath or wheezing) Qty: 90 1RF Rx Instructions: watch for tachycardia acetaminophen 500 mg tablet 500 mg PO BID PRN Rx Instructions: may take up to 1000 mg tid albuterol sulfate 90 mcg/actuation HFA aerosol inhaler 2 puff inhalation Q4H PRN Qty: 2 0RF Rx Instructions: rare use; prefers nebulizer needs to use with spacer Oxygen EACH inhalation PRN PRNQty: 1 Label Comments: pt states uses he uses it every night 2L/min 10/18/20 Rx Instructions: Dr. Katya MD on 10/05/16 verapamil 360 mg capsule,ext rel. pellets 24 hr 360 mg PO DAILY Qty: 90 3RF meloxicam 15 mg tablet 15 mg PO DAILY Qty: 30 3RF lorazepam 0.5 mg tablet 0.5 mg PO BID PRN (Reason: dyspnea) Qty: 60 3RF tramadol 50 mg tablet 50 mg PO Q8H PRN (Reason: pain) Qty: 20 0RF triamcinolone acetonide 15 GM cream 30 gm Topical BID Qty: 2 Label Comments: pt currently taking medication and applying to legs and face has needed sildenafil [Viagra] 100 MG tablet 100 mg PO DAILY PRNQty: 25 Rx Instructions: prn sexual intercourse (DME) nebulizer and compressor Device See Rx Instructions .ROUTE .MEDSUPPLY Qty: 1 0RF Rx Instructions: As directed doxycycline hyclate 100 mg tablet,delayed release (DR/EC) 100 mg PO BID PRN (Reason: copd flare) Qty: 14 1RF escitalopram oxalate 10 mg tablet 10 mg PO DAILY Qty: 90 3RF fluticasone propionate 50 mcg/actuation spray,suspension 50 mcg NS DAILY Qty: 16 11RF omeprazole 20 mg tablet,delayed release (DR/EC) 20 mg PO DAILY Qty: 90 3RF simvastatin 5 mg tablet 5 mg PO DAILY Qty: 90 3RF hydrochlorothiazide 25 mg tablet 25 mg PO DAILY Qty: 90 3RF Daliresp 500 mcg tablet 500 mcg PO DAILY Qty: 30 5RF dexamethasone 1 mg tablet 1 mg PO DAILY PRN (Reason: SOB) Qty: 12 3RF Rx Instructions: Take 2 tabs for 3 days, then 1 tab for 3 days, then 1/2 tabs for 3 days Stiolto Respimat 2.5-2.5 mcg/actuation mist 2 inh Inhalation DAILY Qty: 4 3RF ipratropium-albuterol 0.5 mg-3 mg(2.5 mg base)/3 mL solution for nebulization 3 ml UPD Q6H Qty: 180 12RF Held aspirin 81 mg tablet,delayed release (DR/EC) 81 mg PO DAILY Hold Instructions: Resume on 08/12/21. Discharge Instructions Activity:: bedrest Diet:: NPO Discharge Orders Discharge Orders: Discharge Order (Routine); Ordered 08/05/21 Ordered By: Amy Goins DS: Summary Summary Time spent discussing smoking cessation with patient: more than 10 minutes Time Spent with Patient providing and/or coordinating discharge services: Greater than 30 minutes Specific discharge activities: Patient was admit Status at Discharge Functional status at discharge: bed bound Overall status at discharge: patient is not back to baseline Mental Status: other Speech and Movement: slurred speech Mood: labile mood and other Affect: blunted Exam Const General: cooperative, acute distress moderate and respiratory, in distress moder ate and respiratory, frail appearing and ill appearing Nutritional Appearance: thin HENMT Head: normal to inspection, normocephalic and atraumatic Chest Chest: abnormal inspection of the chest other (ecchymosis ), crepitus, tenderness and other (ecchymosis left posteriolateral chest wall) Resp Effort & Inspection: labored, respiratory distress, tachypneic and other (left chest tube with >500cc bloody drainage in the last hour) Cardio Rate: tachycardic Rhythm: regular rhythm Skin General skin exam: ecchymosis (diffuse, worsening over left lateral chest wall) and other (chest tube in place) Neuro General: patient alert, patient awake and patient oriented x3 Psych Mental Status: other Speech and Movement: slurred speech Mood: labile mood and other Affect: blunted DS: Data Vitals/I&O Vitals and I&O: Vital Signs Temperature 99.0 F 08/05/21 03:25 Temperature Source Tympanic 08/05/21 03:25 Pulse 79 08/05/21 03:25 Pulse Rhythm Regular 08/05/21 03:51 Respiratory Rate 20 08/05/21 05:17 Respiratory Effort Non-Labored 08/05/21 03:51 Respiratory Depth Deep 08/05/21 03:51 Respiratory Pattern Normal 08/05/21 03:51 Blood Pressure 126/77 08/05/21 05:26 Blood Pressure Mean 117 08/03/21 20:39 Pulse Oximetry 96 08/05/21 05:17 Oxygen Delivery Method Nasal Cannula 08/05/21 05:17 Oxygen Flow Rate 3 08/05/21 05:17 Pain Level 8 08/05/21 06:37 Comment 08/05/21 03:25 Intake & Output 08/04/21 08/04/21 08/05/21 11:59 23:59 11:59 Intake Total 500 / 1500 1000 / 1500 1000 / 1000 Output Total 525 / 775 250 / 775 326 / 326 Balance - 750 / 725 674 / 674 Weight 131 lb 15.852 oz 131 lb 15.852 oz Intake: IV 500 / 500 1000 / 1000 Oral 500 / 1000 500 / 1000 Output: Chest Tube Drainage 56 / 56 Urine 525 / 775 250 / 775 270 / 270 Other: Urine Color Straw Light Leti Yellow Urine Appearance Clear Clear Clear Data Completed and Pending Labs on day of discharge: Labs from last 24 hours 08/05/21 08/05/21 08/05/21 08:00 08:00 08:00 WBC 15.68 H RBC 2.88 L Hgb 8.6 L D Hct 27.6 L MCV 96 H MCH 29.9 MCHC 31.2 L RDW 12.6 Plt Count 188 MPV 9.7 Immature Gran % 0.5 Neutrophils % 84.2 Lymphocytes % 7.6 Monocytes % 6.3 Eosinophils % 1.0 Basophils % 0.4 Nucleated RBC % 0.0 Absolute Neutrophils 13.20 H Absolute Lymphocytes 1.19 L Absolute Monocytes 0.99 H Absolute Eosinophils 0.16 Absolute Basophils 0.06 RBC Morphology Normal PT 10.4 INR 1.0 APTT 24.0 ABG Sample Site ABG pH ABG pCO2 ABG pO2 ABG HCO3 ABG Total CO2 ABG O2 Saturation ABG Base Excess VBG Lactate Oxygen Liter Flow FiO2 Sodium Potassium Chloride Carbon Dioxide Anion Gap BUN Creatinine Estimated GFR/1.73 m2 Glucose Calcium Magnesium Patient ABO/Rh Pending Crossmatch See Detail 08/05/21 08/05/21 08/05/21 08:00 08:00 07:46 WBC RBC Hgb Hct MCV MCH MCHC RDW Plt Count MPV Immature Gran % Neutrophils % Lymphocytes % Monocytes % Eosinophils % Basophils % Nucleated RBC % Absolute Neutrophils Absolute Lymphocytes Absolute Monocytes Absolute Eosinophils Absolute Basophils RBC Morphology PT INR APTT ABG Sample Site Left Radial ABG pH 7.26 L ABG pCO2 58 H ABG pO2 84 ABG HCO3 26 ABG Total CO2 25 ABG O2 Saturation 96 ABG Base Excess -1 VBG Lactate 1.4 Oxygen Liter Flow 15 FiO2 NRB Sodium 140 Potassium 4.1 Chloride 107 Carbon Dioxide 26.7 Anion Gap 6.3 BUN 40 H Creatinine 1.6 H Estimated GFR/1.73 m2 43.33 Glucose 115 H Calcium 7.9 L Magnesium 2.0 Patient ABO/Rh Crossmatch [facility] All Active Problems (Updated 08/05/21 @ 08:40 by Amy Goins DO) Traumatic hemo-pneumothorax (Acute) Fall (Acute) Blunt head trauma (Acute) Blunt trauma of multiple sites of trunk (Acute) Pneumothorax on left (Acute) Multiple fractures of ribs of left side (Acute) Pleural nodule (Acute) Rib pain on right side (Acute) Nicotine dependence, cigarettes, uncomplicated (Acute) Lung nodule (Acute) Pulmonary hypertension (Acute) Encounter for screening for malignant neoplasm of lung in former smoker who quit in past 15 years with 30 pack year history or greater (Chronic) annual screening CT in March History of prostate cancer (Acute) Supplemental oxygen dependent (Chronic) uses nights and rarely during the day when he feels hypoxic Former smoker (Chronic) quit Mar 2020 Screening for AAA (abdominal aortic aneurysm) (Acute) POLST (Physician Orders for Life-Sustaining Treatment) (Chronic) done 04/24/19; FULL CODE, trail of feeding tube, up to one wk on vent Right facial numbness (Chronic) secondary to facial surgery for epistaxis Ineffective esophageal motility (Acute) [facility] [place] [place] Basil Barretts esophagus (Acute) 02/10/19- short segment [facility] [place] [place] final path result. negative for dysplasia. Diaphragmatic hernia without obstruction or gangrene (Acute) 02/10/19-[facility] [place] [place] Hiatal hernia (Chronic) 10/21/18 Thoracic Surgeon- No evidence of a diaphragmatic hernia 02/10/19- esophageal manometry procedure. Lung nodule (Acute) 09/19/18 Thoracic Surgeon [facility]. -10 mm diameter left upper lobe intrapulmonary nodule. Lung RADS Cat 4B, suspicious nodule; NOT ON 04/03 SCREEN Anxiety (Chronic) Palliative care patient (Chronic) IFG (impaired fasting glucose) (Acute 03/07/17) Primary malignant neoplasm of prostate (Acute 02/19/11) PROSTATECTOMY [facility] [place] [place] 06/20 Low back pain with left-sided sciatica (Acute 04/01/15) L4-S1 laminectomy w R L4-5 fusion [facility] [place] [place] 06/20/15 Erectile dysfunction (Acute 02/19/11) End stage COPD (Acute 02/19/11) FEV1 53% 07/17 Dr [facility] Advair 500; FEV1 0.97; 31% pred, 30% FVC, no response to bronchodilator 08/2015 FEV1 23%, FVC 63%, severe diffusion defect prefers doxycycline for exacerbations Depression (Chronic 06/27/17) Hypertension (Chronic) Psoriasis with arthropathy (Chronic) Hyperlipidemia (Chronic) Peripheral vascular disease (Chronic) Allergic rhinitis (Chronic) Constipation (Acute) Medical History (Updated 08/05/21 @ 08:40 by Amy Goins DO) End stage chronic obstructive pulmonary disease IFG (impaired fasting glucose) PVD (peripheral vascular disease) Tobacco dependence Trigeminal neuralgia of right side of face Surgical History collar bone surgery Colonoscopy - MAC (05/03/17) L4-S1 laminectomy w/ rgt sided L4-5 fusion (06/20/15) Prostatectomy (~2008) ca Repair, Rotator Cuff (03/14/16) RIGHT/ DR. BRANHAM Family History Mother , age 69 or 70 Personal history of malignant neoplasm lung Lung cancer Smoker Father , age 74 or 75 Essential hypertension Personal history of malignant neoplasm colon, bone, prostate CA Prostate cancer Colon cancer Brother Smoker Sleep apnea COPD (chronic obstructive pulmonary disease) Sister Breast cancer Sister No problems noted. Son No problems noted. Daughter No problems noted. 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 Pets and animals: Yes Pets and animals: cat(s) and dog(s) Do you think of yourself as: straight/heterosexual What is your relationship status?: How often do you talk on the phone with friends or family?: once per week How often do you get together with friends or relatives?: once per week Panel score (0-1 are the most socially isolated patients): 1 What type of physical activity do you participate in: irregular exercise and additional Details: 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 Son lives next door with 3 kids and his . Daughter lives in [place]. Retired when he was 63 (07/2018) after being out on workman's comp since 01/2016. Had back surgery in May 2015--out until October. Blew shoulder out in 01/26. Now on total disability.
--- NOTE | 2021-08-05 09:24 | DI.VRAD_ITS ---
PROCEDURE INFORMATION: Exam: XR Chest Exam date and time: 08/05/2021 7:20 AM Age: 66 years old Clinical indication: Shortness of breath TECHNIQUE: Imaging protocol: Radiologic exam of the chest. Views: 1 view. COMPARISON: CR XR PORTABLE CHEST AP 04/08/2021 12:58 FINDINGS: Tubes, catheters and devices: Left-sided thoracotomy tube is in place unchanged with tip overlying the hilum. Lungs: There is increasing consolidation in the left lung base now obscuring the diaphragm. This likely reflects atelectasis. Pleural spaces: No pneumothorax is visible. There is a partly loculated pleural effusion in the lateral left lung base which appears new from the previous exam. Trace pleural effusion is present on the right. Heart/Mediastinum: Cardiomediastinal silhouette is normal. Vasculature: Aorta is atherosclerotic. Bones/joints: Multiple left-sided rib fractures are present adjacent to the pleural effusion. IMPRESSION: Increasing left basilar consolidation with adjacent loculated pleural effusion and left-sided rib fractures. No pneumothorax. Dictated and Authenticated by: Boo Bowling MD. Ordering:MARGARET Lynn MD
--- NOTE | 2021-08-05 11:17 | NUR.NOTE ---
Pt arrived to ICU at 0800 with hypotension and increased bleeding in chest tube drainage system. Dr. Ibrahim en route and aware of situation, mass blood transfusion protocol initiated. LS on arrival were wet crackles > on Left with increased work of breathing. O2 sats stable on 15 LPM NRB BP 66/46 with 500 cc/1000ccs of 0.9% NS infused. Liter Bolus continued w/o. pt medicated with 50 mg of diphenhydramine and 1 gram of acetaminophen IV prior to completion of 1st unit of blood. Consent received by at bedside. Pt recieved a total of 4 untis of PRBCs and 2 units of FFP while under vigilance of this science writer and [facility] AIR Team. Lung sounds, O2 sats and UO remained unchanged. BP responded well to fluid and blood product administration. Pt intubated by [facility] prior to transport. Pt tolerated intubation and blood product administration well. TXA given by AIR crew prior to transport. Transfer Complete and report called at [id number].
== END 2021-08-05 09:50 | disposition short-term general hospital (02) | DRG 183 ==
LOC: ER 21:40 → MS 08-04 00:52 → ICU 08-05 08:01
PROVIDERS: Internal Medicine; Admitting Provider Surgery; Emergency Provider Emergency Medicine; PCP Nurse Practitioner; Visit Provider Surgery
DX: S22.42XA Multiple fractures of ribs, left side, initial encounter for closed fracture (principal); S27.2XXA Traumatic hemopneumothorax, initial encounter; J44.9 Chronic obstructive pulmonary disease, unspecified; E78.5 Hyperlipidemia, unspecified; R51.9 Headache, unspecified; F17.210 Nicotine dependence, cigarettes, uncomplicated; R91.1 Solitary pulmonary nodule; I27.20 Pulmonary hypertension, unspecified; K22.4 Dyskinesia of esophagus; K22.70 Barrett's esophagus without dysplasia; F41.9 Anxiety disorder, unspecified; R73.01 Impaired fasting glucose; F32.A Depression, unspecified; I10 Essential (primary) hypertension; L40.9 Psoriasis, unspecified; I73.9 Peripheral vascular disease, unspecified; J30.9 Allergic rhinitis, unspecified; K59.00 Constipation, unspecified; Z99.81 Dependence on supplemental oxygen; Z98.1 Arthrodesis status; S09.8XXA Other specified injuries of head, initial encounter; L40.50 Arthropathic psoriasis, unspecified; R07.81 Pleurodynia; V39.49XA Driver of three-wheeled motor vehicle injured in collision with other motor vehicles in traffic accident, initial encounter
CPT/HCPCS: 32551; 36415; 36430; 51702; 71250; 80048; 80053; 82550; 82805; 86850; 86900; 86901; 86920; 87635; 96361; 96374; 96375; 96376; 99285; 36600; 70450; 71045; 71046; 72125; 74176; 82728; 83605; 83735; 85025; 85610; 85730; 94640; 94667; 94760; 99291; J1100; J1644; J1885; J2270; J2405; J7620; P9016; P9059

== ENCOUNTER 2021-09-06 10:59 | Outpatient (REF) | payer OTHER, MEDICARE, SELFPAY ==
[2021-09-06 17:12] LABS: HCT 29.3 % (40.0-50.0); MCH 28.1 pg (27.0-33.0); MCHC 30.7 % (32.0-36.0); MCV 92 fL (80-95); MPV 10.1 fL (8.0-11.0); Platelet Count 428 10^3/uL (130-400); RDW 14.6 % (11.8-14.1); RDW-SD 48.7 fL; WBC 12.28 10^3/uL (4.4-10.8)
[2021-09-06 17:26] LABS: ALT 28 U/L (16-63); AST 23 U/L (15-37); Alkaline Phosphatase 141 U/L (46-116); Anion Gap 6.1 mmol/L (3-11); BUN 18 mg/dL (7-18); Bilirubin, Total 0.2 mg/dL (0.2-1.0); CO2 33.9 mmol/L (21.0-32.0); CREATININE 0.9 mg/dL (0.70-1.30); Calcium 8.9 mg/dL (8.5-10.1); Calculated LDL 56 mg/dL (<100); Chloride 99 mmol/L (98-107); Cholesterol 139 mg/dL (<200); Glucose 119 mg/dL (74-106); HDL Cholesterol 72 mg/dL (40-60); Potassium 3.2 mmol/L (3.5-5.1); Sodium 139 mmol/L (136-145); Total Protein 6.6 g/dL (6.4-8.2); Triglyceride 55 mg/dL (<150)
[2021-09-06 17:34] LABS: Hemoglobin A1C 5.8 % (<5.7)
== END 2021-09-06 11:00 | disposition home or self-care (01) ==
LOC: LBN 10:59
PROVIDERS: PCP Nurse Practitioner; Visit Provider Nurse Practitioner
DX: I10 Essential (primary) hypertension; R73.01 Impaired fasting glucose; J44.9 Chronic obstructive pulmonary disease, unspecified
CPT/HCPCS: 80053; 80061; 85027; 83036

== ENCOUNTER 2021-10-05 15:41 | Outpatient (REF) | payer OTHER, MEDICARE, SELFPAY ==
[2021-10-05 17:53] LABS: Anion Gap 6.2 mmol/L (3-11); BUN 19 mg/dL (7-18); CO2 34.8 mmol/L (21.0-32.0); CREATININE 0.7 mg/dL (0.70-1.30); Calcium 8.8 mg/dL (8.5-10.1); Chloride 100 mmol/L (98-107); Glucose 131 mg/dL (74-106); Sodium 141 mmol/L (136-145)
[2021-10-05 18:12] LABS: HCT 29.5 % (40.0-50.0); HGB 8.6 g/dL (13.5-17.5); MCH 26.1 pg (27.0-33.0); MCHC 29.2 % (32.0-36.0); MCV 89 fL (80-95); MPV 9.6 fL (8.0-11.0); Platelet Count 497 10^3/uL (130-400); RDW 15.3 % (11.8-14.1); RDW-SD 50.4 fL; WBC 12.57 10^3/uL (4.4-10.8)
== END 2021-10-05 15:42 | disposition home or self-care (01) ==
LOC: LBN 15:41
PROVIDERS: PCP Nurse Practitioner; Visit Provider Nurse Practitioner
DX: D64.9 Anemia, unspecified (principal); E87.6 Hypokalemia
CPT/HCPCS: 80048; 85027

== ENCOUNTER 2021-11-03 15:32 | Outpatient (REF) | payer OTHER, MEDICARE, SELFPAY ==
[2021-11-03 17:27] LABS: ALT 14 U/L (16-63); AST 17 U/L (15-37); Albumin 2.6 g/dL (3.4-5.0); Alkaline Phosphatase 140 U/L (46-116); Bilirubin, Direct 0.1 mg/dL (0.0-0.2); Bilirubin, Total 0.1 mg/dL (0.2-1.0); Total Protein 7.5 g/dL (6.4-8.2)
== END 2021-11-03 15:33 | disposition home or self-care (01) ==
LOC: LBN 15:32
PROVIDERS: PCP Nurse Practitioner; Visit Provider Student in an Organized Health Care Education/Training Program
DX: R18.8 Other ascites (principal)
CPT/HCPCS: 80076

== ENCOUNTER 2021-11-16 15:22 | Outpatient (REF) | payer OTHER, MEDICARE, SELFPAY ==
[2021-11-16 19:07] LABS: HCT 33.3 % (40.0-50.0); HGB 9.7 g/dL (13.5-17.5); MCH 24.6 pg (27.0-33.0); MCHC 29.1 % (32.0-36.0); MCV 84 fL (80-95); MPV 10.7 fL (8.0-11.0); Platelet Count 416 10^3/uL (130-400); RBC 3.95 10^6/uL (4.36-5.78)
[2021-11-16 19:12] LABS: Anion Gap 5.6 mmol/L (3-11); BUN 22 mg/dL (7-18); CO2 33.4 mmol/L (21.0-32.0); CREATININE 1.1 mg/dL (0.70-1.30); Calcium 9.2 mg/dL (8.5-10.1); Chloride 103 mmol/L (98-107); Estimated GFR 73.58 (mL/min/1.73m2); Glucose 107 mg/dL (74-106); Potassium 3.6 mmol/L (3.5-5.1); Sodium 142 mmol/L (136-145)
== END 2021-11-16 15:23 | disposition home or self-care (01) ==
LOC: LBN 15:22
PROVIDERS: PCP Nurse Practitioner; Visit Provider Nurse Practitioner
DX: R79.9 Abnormal finding of blood chemistry, unspecified (principal)
CPT/HCPCS: 80048; 85027

== ENCOUNTER 2021-12-18 20:05 | Emergency (ER) | payer OTHER, MEDICARE, SELFPAY ==
--- NOTE | 2021-12-18 20:00 | DI.RAD_ITS ---
Exam(s) XR PORTABLE CHEST AP EXAM: XR PORTABLE CHEST AP CLINICAL HISTORY: covid +, eval for pneumonia TECHNIQUE: 2D digital imaging was performed of the chest. Two images were obtained. AP views were obtained. COMPARISON: CR,XR XR PORTABLE CHEST AP from 08/05/2021 FINDINGS: MEDIASTINUM: Normal. HEART: Normal. PULMONARY VASCULATURE: Normal. LUNGS: The lungs are hyperinflated suggesting underlying COPD. No focal consolidating infiltrates. PLEURAL SPACE: No pleural effusion or pneumothorax. There is some blunting of the left costophrenic a ngle which may represent a small residual pleural effusion or scarring. BONE:Within normal limits for the patient's age. Side plates and screws are seen transfixing the lef t 7th through 9th rib fractures. OTHER FINDINGS:Normal. IMPRESSION: No acute pulmonary findings. DATA REPOSITORY: RADIATION DOSE DELIVERED:
[2021-12-18 20:12] VITALS: BP 155/93; PULSE 98; RESP 20; TEMP 36.8; O2SAT 96
[2021-12-18 20:18] VITALS: RESP 18
[2021-12-18 20:41] LABS: Abs Immature Grans 0.02 10^3/uL (0.0-0.06); Absolute Basophil Count 0.07 10^3/uL (0.0-0.2); Absolute Eosinophil Count 0.29 10^3/uL (0.0-0.7); Absolute Neutrophil Count 4.57 10^3/uL (1.2-6.7); Eosinophils % 3.9; HCT 34.2 % (40.0-50.0); HGB 10.1 g/dL (13.5-17.5); Immature Grans % 0.3; Lymphocytes % 24.5; MCH 24.3 pg (27.0-33.0); MCHC 29.5 % (32.0-36.0); MCV 82 fL (80-95); MPV 9.1 fL (8.0-11.0); Monocytes % 8.2; Neutrophils % 62.1; Platelet Count 305 10^3/uL (130-400); RBC 4.16 10^6/uL (4.36-5.78); RDW 15.5 % (11.8-14.1); WBC 7.35 10^3/uL (4.4-10.8)
--- NOTE | 2021-12-18 20:57 | DI.VRAD_ITS ---
PROCEDURE INFORMATION: Exam: XR Chest Exam date and time: 12/18/2021 8:21 PM Age: 66 years old Clinical indication: Other: Covid +, eval for pneumonia TECHNIQUE: Imaging protocol: Radiologic exam of the chest. Views: 1 view. COMPARISON: CR XR PORTABLE CHEST AP 08/05/2021 7:20 AM FINDINGS: Lungs: Diffuse emphysematous change. Pleural spaces: Trace bilateral pleural effusions. Heart/Mediastinum: Unremarkable. No cardiomegaly. Bones/joints: Postoperative changes within the left ribs and right shoulder. IMPRESSION: No acute cardiopulmonary findings. Dictated and Authenticated by: Keyshawn Guan MD. Ordering:MIRI Simon MD
--- NOTE | 2021-12-18 21:01 | W.ED.GENAD ---
Discharge Plan Disposition Patient Disposition: HOME Condition: Good Discharge Details Clinical Impression: Encounter for medical assessment Primary Care Provider: Carline Muñiz ED Provider: Alfred Poon Home Meds and New Rx's Prescriptions: No Action multivitamin tablet 1 tab PO DAILY albuterol sulfate 90 mcg/actuation HFA aerosol inhaler 2 puff inhalation Q4H PRN Qty: 2 0RF Rx Instructions: rare use; prefers nebulizer needs to use with spacer Oxygen EACH inhalation PRN PRNQty: 1 Label Comments: pt states uses he uses it every night 2L/min 10/18/20 Rx Instructions: Dr. Katya MD on 10/05/16 morphine 10 mg/5 mL solution 5 mg PO TID MDD 15mg PRN (Reason: pain) Qty: 100 0RF fluticasone propionate 50 mcg/actuation spray,suspension 50 mcg NS DAILY Qty: 16 11RF pantoprazole [Protonix] 40 mg tablet,delayed release (DR/EC) 40 mg PO BID Qty: 180 3RF Rx Instructions: [facility] note 08/24/21 cc verapamil 120 mg capsule,ext rel. pellets 24 hr 120 mg PO BID Qty: 180 3RF Rx Instructions: reduced from 360 bid due to hypotension [facility] note 08/24/21 cc clotrimazole 10 mg mariola 10 mg mucous membrane TID Qty: 15 0RF albuterol sulfate 1.25 mg/3 mL solution for nebulization 1.25 mg IH QID PRN (Reason: shortness of breath or wheezing) Qty: 90 1RF Rx Instructions: watch for tachycardia triamcinolone acetonide 15 GM cream 30 gm Topical BID Qty: 2 Label Comments: pt currently taking medication and applying to legs and face has needed (DME) nebulizer and compressor Device See Rx Instructions .ROUTE .MEDSUPPLY Qty: 1 0RF Rx Instructions: As directed doxycycline hyclate 100 mg tablet,delayed release (DR/EC) 100 mg PO BID PRN (Reason: copd flare) Qty: 14 1RF escitalopram oxalate 10 mg tablet 10 mg PO DAILY Qty: 90 3RF simvastatin 5 mg tablet 5 mg PO DAILY Qty: 90 3RF hydrochlorothiazide 25 mg tablet 25 mg PO DAILY Qty: 90 3RF Hold Instructions: [facility] note 08/24/21 cc Daliresp 500 mcg tablet 500 mcg PO DAILY Qty: 30 5RF dexamethasone 1 mg tablet 1 mg PO DAILY PRN (Reason: SOB) Qty: 12 3RF Rx Instructions: Take 2 tabs for 3 days, then 1 tab for 3 days, then 1/2 tabs for 3 days Stiolto Respimat 2.5-2.5 mcg/actuation mist 2 inh Inhalation DAILY Qty: 4 3RF ipratropium-albuterol 0.5 mg-3 mg(2.5 mg base)/3 mL solution for nebulization 3 ml UPD Q6H Qty: 180 12RF acetaminophen 500 mg tablet See Rx Instructions PO BID PRN Rx Instructions: take up 800 mg q6h scheduled [facility] 08/24/21 cgc lidocaine [Lidoderm] 5 % adhesive patch,medicated 3 patch topical DAILY Rx Instructions: leave on most painful area for up to 12 hrs per [facility] 08/24/21 cgc lorazepam 0.5 mg tablet 0.5 mg PO BID PRN (Reason: dyspnea) Qty: 60 3RF gabapentin 600 mg tablet 600 mg PO TID Qty: 90 1RF apixaban 5 mg tablet 5 mg PO BID Qty: 60 0RF Rx Instructions: to take for 3 months per note dated 09.12.21 [facility] Discharge Instructions Additional Instructions: At this time your COVID/flu/RSV test is sure is negative. Your potassium is slightly low. Please take foods that are high in potassium like bananas, legumes, or prunes. If you notice any worsening of your symptoms, or any new symptoms such as vomiting, diarrhea, fever, chills, shortness of breath, chest pain, numbness, weakness, or fainting , please return immediately to the emergency department for reevaluation. Please follow up with your primary care provider as soon as possible for reassessment and reevaluation. As always, it was a pleasure participating in your medical care today. Referrals: Carline Muñiz NP [Primary Care Provider] - Medical Decision Making This is a pleasant 66-year-old male with a past medical history of chronic severe COPD, chronic mild oxygen dependent, peripheral vascular disease, and recent notable left-sided pneumothorax hemothorax that led to rib plating, and a prolonged course in the hospital. Drains are now out, and the patient has been doing very well. He was having multiple blood clots as well, secondary to the procedures and the trauma which is also resolved and he just had his inferior vena cava filter removed 3 days ago. Today at home out of an abundance of concern a COVID test was performed on him. He was asymptomatic though. His COVID test was positive. Repeat test was done and this was also positive. He denies fever, chills, new cough, headache or myalgias. He is vaccinated for COVID. He is posted. Patient has no complaints otherwise at this time. Exam demonstrates a well-appearing male, vital signs stable, he certainly does not show any toxic appearance or signs of significant viral etiology currently, however we are likely catching this at the very beginning. His positive test would coincide with the 3 to 4-day incubation period after his most recent procedure down at [facility]. Because of the patient's multiple risk factors, and high potential for complication he is certainly a candidate for monoclonal antibody therapy. Per his primary care provider he is not a candidate for Paxilovid secondary to medication use. We will confirm his COVID test, we will give the monoclonal antibody therapy. We will get a screening chest x-ray for comparison in case he does worsen and develops worsening COVID later 9:33 PM Laboratory work-up has returned stable, potassium minimally low. COVID/flu/RSV are all normal. We had a long discussion about the plan moving forward. The PCR being negative there is not an indication currently to treat with monoclonal antibodies. The patient feels totally fine and asymptomatic otherwise. He is stable for discharge. I had a long discussion with his [place] as well. We discussed the plan moving forward. Patient will be discharged home. Discussed red flags for which to return. I have extensively reviewed the treatment plan and discharge instructions with the patient and their family. I have addressed all patient concerns at this time. The patient and family was made aware of what symptoms to monitor for that would warrant a return to the emergency department. Discussed the plan with the patient and family, they demonstrate verbal understanding and agreement with our assessment and plan at this time. The documentation in this chart was dictated using [employer] dictation software. Please excuse any dictation errors. FINDINGS: Lungs: Diffuse emphysematous change. Pleural spaces: Trace bilateral pleural effusions. Heart/Mediastinum: Unremarkable. No cardiomegaly. Bones/joints: Postoperative changes within the left ribs and right shoulder. IMPRESSION: No acute cardiopulmonary findings. Thank you for allowing us to participate in the care of your patient. Dictated and Authenticated by: Keyshawn Guan MD 12/18/2021 8:56 PM Eastern Time ([place] & [place]) HPI General Date/Time Provider Initiated Documentation: 12/18/21 20:11. HPI Narrative: This is a pleasant 66-year-old male with a past medical history of chronic severe COPD, chronic mild oxygen dependent, peripheral vascular disease, and recent notable left-sided pneumothorax hemothorax that led to rib plating, and a prolonged course in the hospital. Drains are now out, and the patient has been doing very well. He was having multiple blood clots as well, secondary to the procedures and the trauma which is also resolved and he just had his inferior vena cava filter removed 3 days ago. Today at home out of an abundance of concern a COVID test was performed on him. He was asymptomatic though. His COVID test was positive. Repeat test was done and this was also positive. He denies fever, chills, new cough, headache or myalgias. He is vaccinated for COVID. He is posted. Patient has no complaints otherwise at this time. Related Data Home Medications Medication Instructions Recorded Confirmed triamcinolone acetonide 0.1 % 30 gm topical BID ##2 07/30/14 11/03/21 topical cream multivitamin 1 tab PO DAILY 04/08/18 11/03/21 nebulizer and compressor #1 ea 10/10/20 11/03/21 Oxygen l inhalation PRN PRN ##1 10/18/20 11/03/21 albuterol sulfate 90 mcg/actuation 2 puff inhalation Q4H PRN #2 puffs 10/18/20 11/03/21 aerosol inhaler doxycycline hyclate 100 mg 100 mg PO BID PRN copd flare #14 11/22/20 11/03/21 tablet,delayed release tabs escitalopram oxalate 10 mg tablet 10 mg PO DAILY #90 tab-caps 12/20/20 11/03/21 hydrochlorothiazide 25 mg tablet 25 mg PO DAILY #90 tab-caps 04/12/21 11/03/21 simvastatin 5 mg tablet 5 mg PO DAILY #90 tab-caps 04/12/21 11/03/21 roflumilast 500 mcg tablet 500 mcg PO DAILY #30 tabs 04/18/21 11/03/21 (Daliresp) dexamethasone 1 mg tablet 1 mg PO DAILY PRN SOB #12 tabs 04/24/21 11/03/21 tiotropium 2.5 mcg-olodaterol 2.5 2 inh inhalation DAILY #4 grams 05/15/21 11/03/21 mcg/actuation mist for inhalation (Stiolto Respimat) ipratropium 0.5 mg-albuterol 3 mg 3 ml UPD Q6H #180 mL 07/26/21 11/03/21 (2.5 mg base)/3 mL nebulization soln acetaminophen 500 mg tablet See Rx Instructions PO BID PRN 08/28/21 11/03/21 lidocaine 5 % topical patch 3 patch topical DAILY 08/28/21 11/03/21 (Lidoderm) lorazepam 0.5 mg tablet 0.5 mg PO BID PRN dyspnea #60 tabs 08/28/21 11/03/21 fluticasone propionate 50 50 mcg NS DAILY #16 grams 09/06/21 11/03/21 mcg/actuation nasal spray,suspension pantoprazole 40 mg tablet,delayed 40 mg PO BID #180 tabs 09/06/21 11/03/21 release (Protonix) verapamil 120 mg 24 hr 120 mg PO BID #180 caps 09/06/21 11/03/21 capsule,extended release morphine 10 mg/5 mL oral solution 5 mg (2.5 mL) PO TID PRN pain #100 09/26/21 11/03/21 mL albuterol sulfate 1.25 mg/3 mL 1.25 mg (3 mL) inhalation QID PRN 10/05/21 11/03/21 solution for nebulization shortness of breath or wheezing #90 mL clotrimazole 10 mg mariola 10 mg mucous membrane TID #15 tabs 10/05/21 11/03/21 gabapentin 600 mg tablet 600 mg PO TID #90 tabs 11/20/21 apixaban 5 mg tablet 5 mg PO BID #60 tabs 12/18/21 Previous Rx's Medication Instructions Recorded nebulizer and compressor #1 ea 10/10/20 albuterol sulfate 90 mcg/actuation 2 puff inhalation Q4H PRN #2 puffs 10/18/20 aerosol inhaler doxycycline hyclate 100 mg 100 mg PO BID PRN copd flare #14 11/22/20 tablet,delayed release tabs escitalopram oxalate 10 mg tablet 10 mg PO DAILY #90 tab-caps 12/20/20 hydrochlorothiazide 25 mg tablet 25 mg PO DAILY #90 tab-caps 04/12/21 simvastatin 5 mg tablet 5 mg PO DAILY #90 tab-caps 04/12/21 roflumilast 500 mcg tablet 500 mcg PO DAILY #30 tabs 04/18/21 (Daliresp) dexamethasone 1 mg tablet 1 mg PO DAILY PRN SOB #12 tabs 04/24/21 tiotropium 2.5 mcg-olodaterol 2.5 2 inh inhalation DAILY #4 grams 05/15/21 mcg/actuation mist for inhalation (Stiolto Respimat) ipratropium 0.5 mg-albuterol 3 mg 3 ml UPD Q6H #180 mL 07/26/21 (2.5 mg base)/3 mL nebulization soln lorazepam 0.5 mg tablet 0.5 mg PO BID PRN dyspnea #60 tabs 08/28/21 fluticasone propionate 50 50 mcg NS DAILY #16 grams 09/06/21 mcg/actuation nasal spray,suspension pantoprazole 40 mg tablet,delayed 40 mg PO BID #180 tabs 09/06/21 release (Protonix) verapamil 120 mg 24 hr 120 mg PO BID #180 caps 09/06/21 capsule,extended release morphine 10 mg/5 mL oral solution 5 mg (2.5 mL) PO TID PRN pain #100 09/26/21 mL albuterol sulfate 1.25 mg/3 mL 1.25 mg (3 mL) inhalation QID PRN 10/05/21 solution for nebulization shortness of breath or wheezing #90 mL clotrimazole 10 mg mariola 10 mg mucous membrane TID #15 tabs 10/05/21 gabapentin 600 mg tablet 600 mg PO TID #90 tabs 11/20/21 apixaban 5 mg tablet 5 mg PO BID #60 tabs 12/18/21 Allergies Allergy/AdvReac Type Severity Reaction Status Date / Time Carbonic Anhydrase Inhibitors Allergy Unknown unknown Verified 11/16/21 11:14 propranolol HCl Allergy Unknown unknown Verified 11/16/21 11:14 [From Inderal LA] benzonatate AdvReac Intermediate palpitation Verified 11/16/21 11:14 s levofloxacin AdvReac Intermediate diarrhea Verified 11/16/21 11:14 prednisone AdvReac Intermediate high dose Verified 11/16/21 11:14 causes anxiety,insomnia, increased HR Sulfa (Sulfonamide AdvReac Intermediate GI cramps Verified 11/16/21 11:14 Antibiotics) General Stated Complaint: GenMedical GILL: 3 Review of Systems All systems reviewed & are unremarkable except as noted in HPI and below PFSH All Active Problems (Updated 12/18/21 @ 21:36 by Alfred Poon DO) Encounter for medical assessment (Acute) COVID (Acute) 12/18/21 Home Test Ascites (Acute) Gastric ulcer (Acute) Presence of IVC filter (Acute 08/07/21) Pulmonary embolism on right (Acute 08/07/21) segmental and subsegmetal s/p IVC filter placement Traumatic hemo-pneumothorax (Acute) Fall (Acute) Blunt head trauma (Acute) Blunt trauma of multiple sites of trunk (Acute) Pneumothorax on left (Acute) Multiple fractures of ribs of left side (Acute) Pleural nodule (Acute) Rib pain on right side (Acute) Nicotine dependence, cigarettes, uncomplicated (Acute) Lung nodule (Acute) Pulmonary hypertension (Acute) Encounter for screening for malignant neoplasm of lung in former smoker who quit in past 15 years with 30 pack year history or greater (Chronic) annual screening CT in March History of prostate cancer (Acute) Supplemental oxygen dependent (Chronic) uses nights and rarely during the day when he feels hypoxic Former smoker (Chronic) quit Mar 2020 Screening for AAA (abdominal aortic aneurysm) (Acute) POLST (Physician Orders for Life-Sustaining Treatment) (Chronic) done 04/24/19; FULL CODE, trail of feeding tube, up to one wk on vent Right facial numbness (Chronic) secondary to facial surgery for epistaxis Ineffective esophageal motility (Acute) [facility] Basil Barretts esophagus (Acute) 02/10/19- short segment [facility] final path result. negative for dysplasia. Diaphragmatic hernia without obstruction or gangrene (Acute) 02/10/19-[facility] Hiatal hernia (Chronic) 10/21/18 Thoracic Surgeon- No evidence of a diaphragmatic hernia 02/10/19- esophageal manometry procedure. Lung nodule (Acute) 09/19/18 Thoracic Surgeon [facility]. -10 mm diameter left upper lobe intrapulmonary nodule. Lung RADS Cat 4B, suspicious nodule; NOT ON 04/03 SCREEN Anxiety (Chronic) Palliative care patient (Chronic) IFG (impaired fasting glucose) (Acute 03/07/17) Primary malignant neoplasm of prostate (Acute 02/19/11) PROSTATECTOMY [facility] 06/20 Low back pain with left-sided sciatica (Acute 04/01/15) L4-S1 laminectomy w R L4-5 fusion [facility] 06/20/15 Erectile dysfunction (Acute 02/19/11) End stage COPD (Acute 02/19/11) FEV1 53% 07/17 Dr [facility] Advair 500; FEV1 0.97; 31% pred, 30% FVC, no response to bronchodilator 08/2015 FEV1 23%, FVC 63%, severe diffusion defect prefers doxycycline for exacerbations Depression (Chronic 06/27/17) Hypertension (Chronic) Psoriasis with arthropathy (Chronic) Hyperlipidemia (Chronic) Peripheral vascular disease (Chronic) Allergic rhinitis (Chronic) Constipation (Acute) Medical History End stage chronic obstructive pulmonary disease IFG (impaired fasting glucose) PVD (peripheral vascular disease) Tobacco dependence Trigeminal neuralgia of right side of face Surgical History collar bone surgery Colonoscopy - MAC (05/03/17) L4-S1 laminectomy w/ rgt sided L4-5 fusion (06/20/15) Prostatectomy (~2008) ca Repair, Rotator Cuff (03/14/16) RIGHT/ DR. BRANHAM Family History Mother , age 69 or 70 Personal history of malignant neoplasm lung Lung cancer Smoker Father , age 74 or 75 Essential hypertension Personal history of malignant neoplasm colon, bone, prostate CA Prostate cancer Colon cancer Brother Smoker Sleep apnea COPD (chronic obstructive pulmonary disease) Sister Breast cancer Sister No problems noted. Son No problems noted. Daughter No problems noted. 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 Pets and animals: Yes Pets and animals: cat(s) and dog(s) Do you think of yourself as: straight/heterosexual What is your relationship status?: How often do you talk on the phone with friends or family?: once per week How often do you get together with friends or relatives?: once per week Panel score (0-1 are the most socially isolated patients): 1 What type of physical activity do you participate in: irregular exercise and additional Details: 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 Son lives next door with 3 kids and his . Daughter lives in [place]. Retired when he was 63 (07/2018) after being out on workmani'mma comp since 01/2016. Had back surgery in May 2015--out until October. Blew shoulder out in 01/26. Now on total disability. Exam Narrative Exam Narrative: 1.Const: Well-nourished, Well-developed, appearing stated age 2.Eyes: PERRL, no conjunctival injection, and symmetrical lids. 3.ENT: Atraumatic external nose and ears. Moist MM. Neck: Symmetric, trachea midline, No thyromegaly. 4.CVS: +S1/S2, No murmurs or gallops. Peripheral pulses 2+ and equal in all extremities. Brisk capillary refill in all extremities. 5.RESP: Unlabored respiratory effort. Mild crackles on the left. Scars well-healing. No rhonchi or wheezes 6.GI: Soft, Nontender/Nondistended, No hepatosplenomegaly. No guarding or rebound. 7.MSK: Normocephalic/Atraumatic, Extremities w/o deformity or ttp No cyanosis or clubbing, Normal movement of all extremities 8.Skin: Warm, Dry. No rashes or lesions. 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 Sensation grossly intact, no focal neurologic deficits. 10.Psych: (AAO) x3. Appropriate mood and affect Course Vital Signs Vital signs: Vital Signs Temperature 36.8 C 12/18/21 20:12 Pulse 98 H 12/18/21 20:12 Respiratory Rate 20 12/18/21 20:12 Blood Pressure 155/93 H 12/18/21 20:12 Pulse Oximetry 96 12/18/21 20:12 Temperature 36.8 C 12/18/21 20:12 Pulse 98 H 12/18/21 20:12 Respiratory Rate 18 12/18/21 20:18 Respiratory Effort Non-Labored 12/18/21 20:18 Respiratory Depth Normal 12/18/21 20:18 Respiratory Pattern Normal 12/18/21 20:18 Blood Pressure 155/93 H 12/18/21 20:12 Blood Pressure Position Sitting 12/18/21 20:12 Pulse Oximetry 96 12/18/21 20:12 Oxygen Delivery Method Room Air 12/18/21 20:12 Oxygen Flow Rate 0 12/18/21 20:12 Lab/Test Results Lab/Test Results: Laboratory Tests Range/Units 12/18/21 20:36 WBC (4.4-10.8) 10^3/uL 7.35 RBC (4.36-5.78) 10^6/uL 4.16 L Hgb (13.5-17.5) g/dL 10.1 L Hct (40.0-50.0) % 34.2 L MCV (80-95) fL 82 MCH (27.0-33.0) pg 24.3 L MCHC (32.0-36.0) % 29.5 L RDW (11.8-14.1) % 15.5 H Plt Count (130-400) 10^3/uL 305 MPV (8.0-11.0) fL 9.1 Immature Gran % 0.3 Neutrophils % 62.1 Lymphocytes % 24.5 Monocytes % 8.2 Eosinophils % 3.9 Basophils % 1.0 Nucleated RBC % (0.0-0.3) % 0.0 Absolute Neutrophils (1.2-6.7) 10^3/uL 4.57 Absolute Lymphocytes (1.2-3.4) 10^3/uL 1.80 Absolute Monocytes (0.1-0.8) 10^3/uL 0.60 Absolute Eosinophils (0.0-0.7) 10^3/uL 0.29 Absolute Basophils (0.0-0.2) 10^3/uL 0.07
[2021-12-18 21:06] LABS: ALT 12 U/L (16-63); AST 16 U/L (15-37); Albumin 3.1 g/dL (3.4-5.0); Alkaline Phosphatase 149 U/L (46-116); Anion Gap 5.4 mmol/L (3-11); BUN 19 mg/dL (7-18); Bilirubin, Total 0.1 mg/dL (0.2-1.0); CO2 33.6 mmol/L (21.0-32.0); CREATININE 1.2 mg/dL (0.70-1.30); Calcium 9.1 mg/dL (8.5-10.1); Chloride 105 mmol/L (98-107); Estimated GFR 66.28 (mL/min/1.73m2); Glucose 99 mg/dL (74-106); Potassium 3.2 mmol/L (3.5-5.1); Sodium 144 mmol/L (136-145); Total Protein 7.4 g/dL (6.4-8.2)
[2021-12-18 21:19] LABS: COVID-19 PCR Negative (Negative); Influenza A PCR Negative (Negative); Influenza B PCR Negative (Negative); RSV PCR Negative (Negative)
[2021-12-18 21:24] LABS: Source Nasopharynx
== END 2021-12-18 21:44 | disposition home or self-care (01) ==
PROVIDERS: Emergency Provider Student in an Organized Health Care Education/Training Program; PCP Nurse Practitioner
DX: U07.1 COVID-19 (principal); E87.6 Hypokalemia; I10 Essential (primary) hypertension; E78.5 Hyperlipidemia, unspecified; Z99.81 Dependence on supplemental oxygen
CPT/HCPCS: 80053; 87637; 96374; 99284; 71045; 85025

== ENCOUNTER 2022-01-17 10:26 | Outpatient (REF) | payer OTHER, MEDICARE, SELFPAY ==
[2022-01-17 15:24] LABS: HCT 38.5 % (40.0-50.0); HGB 11.6 g/dL (13.5-17.5); MCH 24.3 pg (27.0-33.0); MCHC 30.1 % (32.0-36.0); MCV 81 fL (80-95); MPV 10.2 fL (8.0-11.0); Platelet Count 270 10^3/uL (130-400); RBC 4.77 10^6/uL (4.36-5.78); RDW 16.3 % (11.8-14.1); RDW-SD 48.1 fL; WBC 6.26 10^3/uL (4.4-10.8)
[2022-01-17 16:06] LABS: Vitamin D 25 Total 37.9 ng/mL (30-100)
[2022-01-17 16:37] LABS: ALT 20 U/L (16-63); AST 23 U/L (15-37); Albumin 3.1 g/dL (3.4-5.0); Alkaline Phosphatase 144 U/L (46-116); Anion Gap 8.5 mmol/L (3-11); BUN 27 mg/dL (7-18); Bilirubin, Total 0.2 mg/dL (0.2-1.0); CO2 31.5 mmol/L (21.0-32.0); CREATININE 1.3 mg/dL (0.70-1.30); Calcium 9.7 mg/dL (8.5-10.1); Chloride 103 mmol/L (98-107); Estimated GFR 60.21 (mL/min/1.73m2); Glucose 125 mg/dL (74-106); Potassium 3.5 mmol/L (3.5-5.1); Sodium 143 mmol/L (136-145); TSH (W/Ref FT4) 0.86 uIU/mL (0.36-3.74); Total Protein 7.8 g/dL (6.4-8.2); Vitamin B12 730 pg/mL (193-986)
[2022-01-17 22:58] LABS: PSA, Screening <0.1 ng/mL (<=4.5)
== END 2022-01-17 10:27 | disposition home or self-care (01) ==
LOC: LBN 10:26
PROVIDERS: PCP Nurse Practitioner; Visit Provider Nurse Practitioner
DX: R20.0 Anesthesia of skin (principal); E55.9 Vitamin D deficiency, unspecified; R29.898 Other symptoms and signs involving the musculoskeletal system; Z12.5 Encounter for screening for malignant neoplasm of prostate
CPT/HCPCS: 80053; 82306; 84153; 85027; 82607; 84443

== ENCOUNTER → 2022-01-26 14:18 | Outpatient (CLI) | payer OTHER, MEDICARE, SELFPAY ==
--- NOTE | 2022-01-26 13:48 | DI.RAD_ITS ---
Exam(s) XR SHOULDER LT COMPLETE 2+V EXAM: XR SHOULDER LT COMPLETE 2+V CLINICAL HISTORY: lt shouder pain, decreased range of motion,m25.512,m25.612. TECHNIQUE: 2D digital imaging was performed. COMPARISON: CT CT CHEST WO from 01/26/2022 FINDINGS: Five views: There is a screw at the midshaft clavicle in the region of a healed fracture site. AC joint appears unremarkable. There is no significant narrowing of the left glenohumeral joint. On the Grashey view there is sligh t upward subluxation of the humeral head in the glenoid fossa. No osteophytes. No abnormal soft tis wendi calcifications. Bone density appears normal. No osseous lesions. IMPRESSION: As above. Incidentally noted are fixation plates in the left rib cage. DATA REPOSITORY: RADIATION DOSE DELIVERED:
--- NOTE | 2022-01-26 13:50 | DI.RAD_ITS ---
Exam(s) XR LUMBAR SPINE COMPLETE EXAM: XR LUMBAR SPINE COMPLETE CLINICAL HISTORY: low back and left hip pain,m54.50. TECHNIQUE: 2D digital imaging was performed. COMPARISON: CR LUMBAR SPINE AP, LAT from 01/09/2011 FINDINGS: Five views: There is no evidence of compression fracture or listhesis. There is advanced disc space narrowing th roughout the entire lumbosacral spine. Degenerative scoliosis noted, with further advancement when c ompared to 2010. Epicenter is at the right-side of L3-4 disc space where there is advanced asymmetri c narrowing of the right side of this disc space when compared to the left side. Some facet arthropa thy is noted. No osseous lesions. Sacroiliac joints appear unremarkable. IMPRESSION: Multilevel chronic degenerative disc disease. Degenerative scoliosis. DATA REPOSITORY: RADIATION DOSE DELIVERED:
--- NOTE | 2022-01-26 13:55 | DI.RAD_ITS ---
Exam(s) XR HIP LT COMPLETE AP PELVIS EXAM: XR HIP LT COMPLETE AP PELVIS CLINICAL HISTORY: low back and left hip pain,m25.552. TECHNIQUE: 2D digital imaging was performed. COMPARISON: CR LUMBAR SPINE COMPLETE from 05/19/2015 FINDINGS: Views: No evidence of pelvic nor hip fracture. Mild narrowing of the superior hip joint spaces, slightly mo re so on the right side. Additional lateral view of the left hip reveals no significant joint space narrowing. Sacroiliac joints appear unremarkable. Asymmetric narrowing of the right-side of the L4- 5 disc space is noted. No osseous lesions. IMPRESSION: DATA REPOSITORY: RADIATION DOSE DELIVERED:
== END ==
PROVIDERS: PCP Nurse Practitioner; Visit Provider Nurse Practitioner
DX: M25.552 Pain in left hip (principal); M54.59 Other low back pain; M51.36 Other intervertebral disc degeneration, lumbar region; M47.816 Spondylosis without myelopathy or radiculopathy, lumbar region; M25.512 Pain in left shoulder; M25.612 Stiffness of left shoulder, not elsewhere classified; S43.082A Other subluxation of left shoulder joint, initial encounter
CPT/HCPCS: 72110; 73030; 73502

== ENCOUNTER 2022-02-23 00:17 | Outpatient (CLI) | payer OTHER, MEDICARE, SELFPAY ==
--- NOTE | 2022-02-23 10:30 | DI.MRI_ITS ---
Exam(s) MR CERVICAL SPINE WO EXAM: MR CERVICAL SPINE WO CLINICAL HISTORY: b/l LE numbness and hyperreflexia,r29.2,m54.2,r20.0 TECHNIQUE: Multiplanar multisequence MRI of the cervical spine was performed without intravenous con trast. COMPARISON: CT CT HEAD CERVICAL SPINE WO from 08/03/2021 FINDINGS: BONES: There are endplate osteophytes, disc space narrowing and endplate degenerative signal changes at multiple levels in the cervical spine. There is minimal anterolisthesis of C2 on C3. This is unc hanged compared to the prior CT scan from 08/03/2021. CERVICAL CORD: Craniovertebral junction is unremarkable. The cervical cord is normal size and signal intensity. SOFT TISSUES: Unremarkable. C2-3: No disc herniation or bulge is identified. No significant central spinal canal or neural forami nal stenosis. C3-4: There is mild prominence of the osteophyte disc complex which impinges upon the anterior spinal cord. There is normal spinal cord signal. No significant central spinal canal stenosis is present. There is mild bilateral neural foraminal narrowing. C4-5: There is prominence of the osteophyte disc complex mildly impinging on the anterior spinal cord . There is normal spinal cord signal. No significant central spinal canal stenosis is seen. There is mild bilateral neural foraminal stenosis. C5-6: There is prominence of the osteophyte disc complex impinging and flattening the anterior aspect of the spinal cord. There is normal spinal cord signal. There is mild central spinal canal narrowi ng. Moderately severe bilateral neural foraminal stenosis is present. C6-7: There is mild prominence of the osteophyte disc complex. Mild hypertrophic changes are seen at the uncovertebral joints bilaterally. No significant central spinal canal stenosis is seen. There is moderate bilateral neural foraminal stenosis. C7-T1: No disc herniation or bulge is identified. No significant central spinal canal or neural melquiades inal stenosis IMPRESSION: Multilevel degenerative changes in the cervical spine resulting in multilevel central spinal canal or neural foraminal stenosis as described above. DATA REPOSITORY:
--- NOTE | 2022-02-23 11:00 | DI.MRI_ITS ---
Exam(s) MR LUMBAR SPINE WO EXAM: MR LUMBAR SPINE WO CLINICAL HISTORY: L sciatica,low back pain, abnl reflex,r29.2,m54.42,r20.0. TECHNIQUE: Multiplanar multisequence MRI of the Lumbar spine was performed. COMPARISON: MR MRI - LUMBAR SPINE WO CONTRAST from 05/13/2015 CR XR LUMBAR SPINE COMPLETE from 01/26/2022 FINDINGS: Bones: The last intervertebral disc space is designated the L5/S1 level for the numbering purpose of this examination. There are endplate osteophytes at multiple levels of the lumbar spine. There is a left convex lumbar scoliosis. Endplate degenerative signal changes are seen particularly at L2-3 a nd L3-L4. The patient appears to have had prior L4 and L5 laminectomies. Please correlate clinically . Cord: The conus tip ends at the L1 level. It is of normal size and signal intensity. T12-L1: No disc herniations or bulges are present. No central spinal canal or neural foraminal stenos is. L1-2: There is a mild diffuse disc bulge without significant central spinal canal stenosis. No signi ficant neural foraminal stenosis is seen. L2-3: There is a diffuse disc bulge there are hypertrophic changes of the facets and ligamentum flavu m. There is minimal narrowing of the central spinal canal. There is mild bilateral neural foraminal stenosis. L3-4: There are degenerative changes of the facets. There is mild prominence of the osteophyte disc complex. There is mild narrowing of the central spinal canal. There is moderate right and mild left neural foraminal stenosis. L4-5: There is a diffuse disc bulge. No significant central spinal canal stenosis is present. There is moderately severe bilateral neural foraminal stenosis. L5-S1: There is a mild diffuse disc bulge. No significant central spinal canal stenosis is seen. Fa cet arthropathy is present. There is marked bilateral neural foraminal stenosis, left greater than r ight. Soft tissues: The visualized SI joints and sacrum are well maintained. The paraspinal soft tissues ar e unremarkable. Visualized abdominal organs: Note is again made of bilateral renal cysts. IMPRESSION: Multilevel degenerative changes in the lumbar spine resulting in central spinal canal and neural fora wilson stenosis as described above. DATA REPOSITORY:
== END 2022-02-23 00:37 ==
LOC: DI 00:18
PROVIDERS: PCP Nurse Practitioner; Visit Provider Psychiatry & Neurology Neurology
DX: M54.42 Lumbago with sciatica, left side (principal); R20.0 Anesthesia of skin; R29.2 Abnormal reflex; M47.816 Spondylosis without myelopathy or radiculopathy, lumbar region; M47.812 Spondylosis without myelopathy or radiculopathy, cervical region
CPT/HCPCS: 72141; 72148

== ENCOUNTER 2022-03-23 00:51 | Outpatient (CLI) | payer OTHER, MEDICARE, SELFPAY ==
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
== END 2022-03-23 01:11 ==
LOC: DI 00:51
PROVIDERS: PCP Nurse Practitioner; Visit Provider Student in an Organized Health Care Education/Training Program
DX: M25.512 Pain in left shoulder (principal); M75.102 Unspecified rotator cuff tear or rupture of left shoulder, not specified as traumatic; M19.012 Primary osteoarthritis, left shoulder; M75.82 Other shoulder lesions, left shoulder
CPT/HCPCS: 73221

== ENCOUNTER 2022-05-03 04:18 | Outpatient (CLI) | payer OTHER, MEDICARE, SELFPAY ==
[2022-05-03 13:12] LABS: Abs Immature Grans 0.04 10^3/uL (0.0-0.06); Absolute Basophil Count 0.09 10^3/uL (0.0-0.2); Absolute Eosinophil Count 0.26 10^3/uL (0.0-0.7); Absolute Lymphocyte Count 1.46 10^3/uL (1.2-3.4); Absolute Monocyte Count 0.62 10^3/uL (0.1-0.8); Absolute Neutrophil Count 6.09 10^3/uL (1.2-6.7); Basophils % 1.1; HCT 41.2 % (40.0-50.0); HGB 12.7 g/dL (13.5-17.5); Immature Grans % 0.5; Lymphocytes % 17.1; MCH 26.7 pg (27.0-33.0); MCHC 30.8 % (32.0-36.0); MCV 87 fL (80-95); MPV 9.3 fL (8.0-11.0); Monocytes % 7.2; Neutrophils % 71.1; Platelet Count 284 10^3/uL (130-400); RBC 4.75 10^6/uL (4.36-5.78); RDW 15.2 % (11.8-14.1); RDW-SD 48.2 fL; WBC 8.56 10^3/uL (4.4-10.8)
[2022-05-03 14:07] LABS: C-Reactive Protein 0.43 mg/dL (0.0-0.3); TSH (W/Ref FT4) 0.98 uIU/mL (0.36-3.74)
[2022-05-03 15:23] LABS: Iron 59 ug/dL (65-175); Total Iron Binding Capacity 345 ug/dL (250-450); Transferrin Sat 17 % (20-55)
[2022-05-03 15:51] LABS: Ferritin 23 ng/mL (26-388)
[2022-05-03 15:59] LABS: Folate > 20.0 ng/mL (8.6-20.0)
== END 2022-05-03 04:19 | disposition home or self-care (01) ==
LOC: LBO 04:19
PROVIDERS: PCP Nurse Practitioner; Visit Provider Surgery
DX: C61 Malignant neoplasm of prostate (principal); D50.0 Iron deficiency anemia secondary to blood loss (chronic); D62 Acute posthemorrhagic anemia; D63.8 Anemia in other chronic diseases classified elsewhere; E78.5 Hyperlipidemia, unspecified; F32.9 Major depressive disorder, single episode, unspecified; I10 Essential (primary) hypertension; I26.99 Other pulmonary embolism without acute cor pulmonale; I27.20 Pulmonary hypertension, unspecified; K22.4 Dyskinesia of esophagus; K22.70 Barrett's esophagus without dysplasia; K25.9 Gastric ulcer, unspecified as acute or chronic, without hemorrhage or perforation; K44.9 Diaphragmatic hernia without obstruction or gangrene; R91.1 Solitary pulmonary nodule; S27.2XXA Traumatic hemopneumothorax, initial encounter; Z85.46 Personal history of malignant neoplasm of prostate; Z87.891 Personal history of nicotine dependence; Z99.81 Dependence on supplemental oxygen
CPT/HCPCS: 36415; 82728; 82746; 83540; 83550; 84443; 85025; 86140

== ENCOUNTER 2022-09-18 04:10 | Outpatient (CLI) | payer OTHER, MEDICARE, SELFPAY ==
[2022-09-18] MEDS: Albuterol HFA 18 GM 200 PUFF INH IH (11:24)
[2022-09-18] MEDS: Inhaler, Assist Device 1 EACH MC (11:25)
--- NOTE | 2022-09-18 13:03 | W.6MWT ---
Date of service: 09/18/22 Time of Service: 10:18 6 Minute Walk Test Note: 6 Minute Walk Test Portable pulse O2 carried Distance walked: 400 feet Desaturations: 92% to 84% at 1 minutes and 83% at 6 minutes Heart rate changes:No significant changes Recommendation: Increased pulsed O2 from 2LPM to 4LPM Marah Raphael MD Pulmonary & Critical Care Medicine
--- NOTE | 2022-09-25 07:31 | W.PFT ---
Date of service: 09/18/22 Time of Service: 10:27 Pulmonary Function Test Result Indications: COPD Interpretation Spirometry: There is very severe airflow limitation. Technically no significant bronchodilator response, however a 200cc increase is not possible with his low lung function. Lung Volumes: There is severe hyperinflation and air trapping. Diffusion Capacity: Decreased diffusion Airway Pressure: Increased airways resistance. Impression Very severe airflow obstruction with air trapping and a decreased diffusion. Note: As compared to 2020, his FEV1 and FVC have worsened, but his DLCO is slightly improved. Clinical Correlation therefore is recommended.
== END 2022-09-18 04:11 | disposition home or self-care (01) ==
LOC: RT 04:10
PROVIDERS: PCP Nurse Practitioner; Visit Provider Physician Assistant Surgical
DX: J44.9 Chronic obstructive pulmonary disease, unspecified (principal)
CPT/HCPCS: 94060; 94618; 94726; 94729; 36600

== ENCOUNTER 2022-09-18 04:11 | Outpatient (CLI) | payer OTHER, MEDICARE, SELFPAY ==
[2022-09-18 10:18] LABS: BE 8 mmol/L (-2-3); HCO3 32 mmol/L (22-26); pCO2 48 mmHg (35-45); pH 7.43 (7.35-7.45); pO2 59 mmHg (80-105); sO2 91 % (95-98); tCO2 29 mmol/L (23-27)
[2022-09-18 10:20] LABS: Site Right Radial
[2022-09-18 10:22] LABS: FIO2 Unknown/Not Given %; FIO2L Unknown/Not Given L
== END 2022-09-18 04:12 | disposition home or self-care (01) ==
LOC: RT 04:11
PROVIDERS: PCP Nurse Practitioner; Visit Provider Physician Assistant Surgical
DX: I27.20 Pulmonary hypertension, unspecified (principal); Z99.81 Dependence on supplemental oxygen; J44.9 Chronic obstructive pulmonary disease, unspecified
CPT/HCPCS: 82805

== ENCOUNTER 2022-12-04 02:53 | Outpatient (CLI) | payer OTHER, MEDICARE, SELFPAY ==
[2022-12-04 10:11] LABS: Abs Immature Grans 0.06 10^3/uL (0.0-0.06); Absolute Basophil Count 0.06 10^3/uL (0.0-0.2); Absolute Eosinophil Count 0.42 10^3/uL (0.0-0.7); Absolute Lymphocyte Count 1.64 10^3/uL (1.2-3.4); Absolute Monocyte Count 0.57 10^3/uL (0.1-0.8); Absolute Neutrophil Count 5.67 10^3/uL (1.2-6.7); Basophils % 0.7; HCT 42.5 % (40.0-50.0); HGB 13.5 g/dL (13.5-17.5); Immature Grans % 0.7; Lymphocytes % 19.5; MCHC 31.8 % (32.0-36.0); MCV 91 fL (80-95); MPV 9.4 fL (8.0-11.0); Monocytes % 6.8; Neutrophils % 67.3; Platelet Count 257 10^3/uL (130-400); RBC 4.66 10^6/uL (4.36-5.78); RDW 13.1 % (11.8-14.1); RDW-SD 43.2 fL; WBC 8.42 10^3/uL (4.4-10.8)
[2022-12-04 10:42] LABS: ALT 29 U/L (16-63); AST 22 U/L (15-37); Albumin 3.2 g/dL (3.4-5.0); Alkaline Phosphatase 133 U/L (46-116); Anion Gap 4.9 mmol/L (3-11); BUN 20 mg/dL (7-18); Bilirubin, Total 0.3 mg/dL (0.2-1.0); CO2 37.1 mmol/L (21.0-32.0); CREATININE 1.2 mg/dL (0.70-1.30); Calcium 9.9 mg/dL (8.5-10.1); Calculated LDL 72 mg/dL (<100); Chloride 102 mmol/L (98-107); Cholesterol 176 mg/dL (<200); Estimated GFR 65.87 (mL/min/1.73m2); Glucose 98 mg/dL (74-106); HDL Cholesterol 93 mg/dL (40-60); Potassium 3.5 mmol/L (3.5-5.1); Sodium 144 mmol/L (136-145); Total Protein 7.7 g/dL (6.4-8.2); Triglyceride 57 mg/dL (<150)
== END 2022-12-04 02:54 | disposition home or self-care (01) ==
LOC: LBO 02:53
PROVIDERS: Absent Provider Nurse Practitioner; PCP Nurse Practitioner; Referring Provider Nurse Practitioner; Visit Provider Nurse Practitioner
DX: E78.5 Hyperlipidemia, unspecified (principal); I10 Essential (primary) hypertension; I27.20 Pulmonary hypertension, unspecified
CPT/HCPCS: 36415; 80053; 80061; 85025

== ENCOUNTER → 2023-01-30 02:16 | Outpatient (CLI) | payer OTHER, MEDICARE, SELFPAY | PROVIDERS: PCP Nurse Practitioner; Visit Provider Student in an Organized Health Care Education/Training Program | DX: I27.20 Pulmonary hypertension, unspecified (principal); R06.00 Dyspnea, unspecified | CPT/HCPCS: 93306 ==

== ENCOUNTER 2023-04-15 16:25 | Outpatient (REF) | payer OTHER, MEDICARE, SELFPAY ==
[2023-04-15 19:24] LABS: Abs Immature Grans 0.02 10^3/uL (0.0-0.06); Absolute Basophil Count 0.05 10^3/uL (0.0-0.2); Absolute Eosinophil Count 0.27 10^3/uL (0.0-0.7); Absolute Lymphocyte Count 1.05 10^3/uL (1.2-3.4); Absolute Monocyte Count 0.57 10^3/uL (0.1-0.8); Absolute Neutrophil Count 6.64 10^3/uL (1.2-6.7); Basophils % 0.6; Eosinophils % 3.1; HCT 40.2 % (40.0-50.0); HGB 12.9 g/dL (13.5-17.5); Immature Grans % 0.2; Lymphocytes % 12.2; MCH 29.3 pg (27.0-33.0); MCHC 32.1 % (32.0-36.0); MCV 91 fL (80-95); MPV 10.2 fL (8.0-11.0); Monocytes % 6.6; Neutrophils % 77.3; Platelet Count 179 10^3/uL (130-400); RDW 13.2 % (11.8-14.1); RDW-SD 44.3 fL
[2023-04-15 19:35] LABS: ALT 33 U/L (16-63); AST 26 U/L (15-37); Albumin 3.1 g/dL (3.4-5.0); Alkaline Phosphatase 118 U/L (46-116); Anion Gap 5.4 mmol/L (3-11); BUN 22 mg/dL (7-18); Bilirubin, Total 0.2 mg/dL (0.2-1.0); CO2 36.6 mmol/L (21.0-32.0); CREATININE 1.1 mg/dL (0.70-1.30); Calcium 9.1 mg/dL (8.5-10.1); Chloride 102 mmol/L (98-107); Estimated GFR 73.12 (mL/min/1.73m2); Glucose 93 mg/dL (74-106); Potassium 3.4 mmol/L (3.5-5.1); Sodium 144 mmol/L (136-145); Total Protein 6.5 g/dL (6.4-8.2)
[2023-04-15 20:12] LABS: Ferritin 83 ng/mL (26-388)
== END 2023-04-15 16:26 | disposition home or self-care (01) ==
LOC: LBN 16:25
PROVIDERS: PCP Nurse Practitioner; Visit Provider Nurse Practitioner
DX: R53.83 Other fatigue (principal); D50.0 Iron deficiency anemia secondary to blood loss (chronic); R10.9 Unspecified abdominal pain
CPT/HCPCS: 80053; 82728; 85025

== ENCOUNTER 2023-05-10 14:00 | Outpatient (RCR) | payer OTHER, MEDICARE, SELFPAY | END 2023-05-12 23:59 | disposition home or self-care (01) | LOC: PRC 14:00 | PROVIDERS: PCP Nurse Practitioner; Referring Provider Student in an Organized Health Care Education/Training Program; Visit Provider Student in an Organized Health Care Education/Training Program | DX: J44.1 Chronic obstructive pulmonary disease with (acute) exacerbation (principal) | CPT/HCPCS: 94626 ==

== ENCOUNTER 2023-06-10 14:51 | Outpatient (RCR) | payer OTHER, MEDICARE, SELFPAY | END 2023-06-11 23:59 | disposition home or self-care (01) | LOC: PRC 14:51 | PROVIDERS: PCP Nurse Practitioner; Referring Provider Student in an Organized Health Care Education/Training Program; Visit Provider Student in an Organized Health Care Education/Training Program | DX: J44.9 Chronic obstructive pulmonary disease, unspecified (principal) | CPT/HCPCS: 94626 ==

== ENCOUNTER 2023-07-03 14:00 | Outpatient (RCR) | payer OTHER, MEDICARE, SELFPAY | END 2023-07-12 23:59 | disposition home or self-care (01) | LOC: PRC 14:00 | PROVIDERS: PCP Nurse Practitioner; Referring Provider Student in an Organized Health Care Education/Training Program; Visit Provider Student in an Organized Health Care Education/Training Program | DX: J44.9 Chronic obstructive pulmonary disease, unspecified (principal); Z99.81 Dependence on supplemental oxygen | CPT/HCPCS: 94626 ==

== ENCOUNTER 2024-07-09 03:13 | Outpatient (CLI) | payer OTHER, MEDICARE, SELFPAY ==
[2024-07-09 12:07] LABS: HCT 38.5 % (40.0-50.0); HGB 11.6 g/dL (13.5-17.5); MCHC 30.1 % (32.0-36.0); MCV 93 fL (80-95); MPV 10.1 fL (8.0-11.0); Platelet Count 226 10^3/uL (130-400); RBC 4.14 10^6/uL (4.36-5.78); RDW 13.4 % (11.8-14.1); RDW-SD 45.5 fL; WBC 8.25 10^3/uL (4.4-10.8)
[2024-07-09 12:26] LABS: ALT 34 U/L (16-63); AST 28 U/L (15-37); Albumin 3.1 g/dL (3.4-5.0); Alkaline Phosphatase 120 U/L (46-116); Anion Gap 3.8 mmol/L (3-11); BUN 15 mg/dL (7-18); Bilirubin, Total 0.3 mg/dL (0.2-1.0); CO2 36.2 mmol/L (21.0-32.0); CREATININE 0.9 mg/dL (0.70-1.30); Calcium 9.4 mg/dL (8.5-10.1); Calculated LDL 76 mg/dL (<100); Chloride 105 mmol/L (98-107); Cholesterol 179 mg/dL (<200); Estimated GFR 91.88 (mL/min/1.73m2); Glucose 104 mg/dL (74-106); HDL Cholesterol 91 mg/dL (>or=40); Potassium 3.7 mmol/L (3.5-5.1); Sodium 145 mmol/L (136-145); Total Protein 7.2 g/dL (6.4-8.2); Triglyceride 60 mg/dL (<150)
== END 2024-07-09 03:14 | disposition home or self-care (01) ==
LOC: LOS 03:13
PROVIDERS: PCP Nurse Practitioner; Visit Provider Nurse Practitioner
DX: D63.8 Anemia in other chronic diseases classified elsewhere (principal); E78.5 Hyperlipidemia, unspecified; R73.01 Impaired fasting glucose
CPT/HCPCS: 36415; 80053; 80061; 85027; 83036

== ENCOUNTER 2024-08-12 02:29 | Outpatient (CLI) | payer OTHER, MEDICARE, SELFPAY ==
--- NOTE | 2024-08-12 07:15 | DI.CTLCSR_ITS ---
Exam(s) CT CHEST LUNG CANCER SCREEN EXAM: CT CHEST LUNG CANCER SCREEN CLINICAL HISTORY: Screening for lung cancer,former tobacco use,z87.891 TECHNIQUE: Imaging Protocol: Axial computed tomography images with coronal and sagittal reformatted images were created and reviewed. Low dose screening protocol. COMPARISON: CT CT CHEST/ABD/PEL W from 04/24/[address] CHEST WO from 08/12/2023 FINDINGS: Tracheobronchial tree: No bronchiectasis or mucus plugging. Mediastinum and Mahnaz: No dominant adenopathy or fluid collection. Pulmonary parenchyma: Severe emphysematous changes. Stable scarring right upper lobe and posterior right upper lobe. Significant increase in size of the medial right lower lobe mass, measuring 16 mm compared to 10mm previously. Lung Nodules: None. Pleura: No effusion. No pneumothorax. Heart: The heart is not dilated. Coronary artery calcifications are seen. No pericardial effusion. Stable fatty lesion in the right septum. Aorta: Thoracic aorta non-dilated. Upper abdomen: Unremarkable. Bones: Fixation plates in the left ribs. No visible lytic or blastic lesions. Soft Tissues: Unremarkable. IMPRESSION: Significant increase in size of medial right lower lobe mass, now measuring 16 millimeters. Biopsy is recommended Lung RADS Cat 4B - Suspicious: Findings for which additional diagnostic testing and/or tissue sampling is recommended Lung-RADS 1.0 CATEGORIES: Category 0 - Prior chest CT exam(s) being located for comparison. Category 1 - Annual screening in 12 months. No nodules or definitely benign nodules. Category 2 - Annual screening in 12 months. Benign appearance. Nodules with low likelihood of becoming active cancer. Category 3 - 6-month follow-up. Probably benign. Short-term follow-up suggested. Nodules with low likelihood of becoming active cancer. Category 4A - 3-month follow-up and CT/PET if >8 mm in size. Suspicious finding. Findings which require additional testing. Category 4B - Findings which require additional testing and tissue sampling. Category 4X - Category 3 or 4 nodules with additional features or imaging findings that increases the suspicion of malignancy. Modifier S- Potentially clinically significant findings (non lung cancer) RADIATION DOSE DELIVERED: !Error Total DLP DATA REPOSITORY: All CT scans at this facility are submitted to the National Radiology Data Registry (NRDR) Dose Index Registry (DIR) with the [employer] ([employer]). RADIATION OPTIMIZATION: All CT scans at this facility use at least one of these dose optimization techniques: automated exposure control; mA and/or kV adjustment per patient size (includes targeted exams where dose is matched to clinical indication); or iterative reconstruction.
== END 2024-08-12 02:49 ==
PROVIDERS: PCP Family Medicine; Visit Provider Physician Assistant Surgical
DX: Z12.2 Encounter for screening for malignant neoplasm of respiratory organs (principal); Z87.891 Personal history of nicotine dependence; R91.8 Other nonspecific abnormal finding of lung field
CPT/HCPCS: 71271

== ENCOUNTER 2024-10-27 17:34 | Observation (INO) | payer OTHER, MEDICARE, SELFPAY ==
[2024-10-27] VITALS (26 sets, daily range): BP systolic 130–159; BP diastolic 72–102; PULSE 79–101; RESP 11–22; TEMP 36.2–36.7; O2SAT 76–100
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
[2024-10-27 18:08] LABS: BE (Venous) 11 mmol/L (-2-3); HCO3 (Venous) 37 mmol/L (23-28); O2 Sat (Venous) 63 %; TCO2 (Venous) 34 mmol/L (24-29); pO2 (Venous) 36 mmHg
[2024-10-27] MEDS: fentaNYL 100 MCG/2 ML VIAL ×2 (18:09→18:26)
[2024-10-27 18:11] LABS: pCO2 (Venous) 69 mmHg (41-51)
[2024-10-27] MEDS: Albuterol/Ipratropium 3 ML UPD VIAL (18:11)
[2024-10-27 18:13] LABS: Abs Immature Grans 0.05 10^3/uL (0.0-0.06); HCT 41.6 % (40.0-50.0); HGB 12.8 g/dL (13.5-17.5); Immature Grans % 0.5 %; MCH 27.9 pg (27.0-33.0); MCHC 30.8 % (32.0-36.0); MCV 91 fL (80-95); MPV 9.9 fL (8.0-11.0); Platelet Count 232 10^3/uL (130-400); RBC 4.58 10^6/uL (4.36-5.78); RDW 13.3 % (11.8-14.1); RDW-SD 44.0 fL; WBC 9.54 10^3/uL (4.4-10.8)
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
[2024-10-27 18:22] LABS: INR 0.9 (0.9-1.1); Prothrombin Time 9.5 sec (9.1-11.1)
[2024-10-27 18:33] LABS: ALT 35 U/L (16-63); AST 25 U/L (15-37); Albumin 3.4 g/dL (3.4-5.0); Alkaline Phosphatase 118 U/L (46-116); Anion Gap 4.0 mmol/L (3-11); BUN 18 mg/dL (7-18); Bilirubin, Total 0.4 mg/dL (0.2-1.0); CO2 39.0 mmol/L (21.0-32.0); Calcium 9.8 mg/dL (8.5-10.1); Chloride 99 mmol/L (98-107); Estimated GFR 72.22 (mL/min/1.73m2); Glucose 101 mg/dL (74-106); Magnesium 2.0 mg/dL (1.8-2.4); Potassium 3.2 mmol/L (3.5-5.1); Sodium 142 mmol/L (136-145); Total Protein 7.7 g/dL (6.4-8.2); Troponin I 13 ng/L (<or=76)
[2024-10-27] MEDS: Fluorescein STRIPS 100/BOX 1 MG OP ×2 (18:38→18:50)
--- NOTE | 2024-10-27 19:04 | NUR.NOTE ---
Nursing Note: Pt arrived just before computer downtime. Provider in room immediately, IV initiated. Respiratory at bedside. Subsequent orders entered late- initially written orders by provider, to be scanned in later. Verbal order Q1H fentanyl for pain. No treatment for loss of skin/direct care to burn ordered or advised until further airway precautions taken r/t nasal cannula dependency. Hx COPD.
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
[2024-10-27 19:19] LABS: Troponin I 12 ng/L (<or=76)
[2024-10-27] MEDS: MORPHine 4 MG/ML SYR IVP (19:25)
[2024-10-27] MEDS: Enoxaparin 40 MG/0.4 ML SYR SC (19:26)
[2024-10-27] MEDS: Celecoxib 100 MG CAP PO (21:32)
[2024-10-27] MEDS: Gabapentin 400 MG CAP PO (21:32)
[2024-10-27] MEDS: POTASSIUM CHLORIDE/0.45% NACL 1,000 ML 100 MEQ IV (21:33)
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
[2024-10-27] MEDS: POTASSIUM CHLORIDE 10 MEQ/100 ML BAG 50 MEQ IV_INF ×2 (22:03→23:23)
[2024-10-27] MEDS: Albuterol/Ipratropium 3 ML UPD VIAL UPD (22:33)
[2024-10-27] MEDS: Triamcinolone 0.1% CR 15 GM TUBE TP (22:40)
[2024-10-28] VITALS (16 sets, daily range): BP systolic 100–150; BP diastolic 68–95; PULSE 77–84; RESP 16–20; TEMP 36.4–36.9; O2SAT 83–100
[2024-10-28] MEDS: LORazepam 0.5 MG TAB PO ×4 (00:32→20:40)
[2024-10-28] MEDS: MORPHine Oral Solution 10 MG/5 ML CUP 5 MG PO ×3 (00:32→20:49)
[2024-10-28 06:43] LABS: Abs Immature Grans 0.03 10^3/uL (0.0-0.06); HCT 36.2 % (40.0-50.0); HGB 11.0 g/dL (13.5-17.5); Immature Grans % 0.3 %; MCH 28.1 pg (27.0-33.0); MCHC 30.4 % (32.0-36.0); MCV 93 fL (80-95); MPV 9.9 fL (8.0-11.0); Platelet Count 189 10^3/uL (130-400); RBC 3.91 10^6/uL (4.36-5.78); RDW 13.4 % (11.8-14.1); RDW-SD 45.5 fL; WBC 9.11 10^3/uL (4.4-10.8)
[2024-10-28 07:12] LABS: ALT 36 U/L (16-63); AST 23 U/L (15-37); Albumin 2.5 g/dL (3.4-5.0); Alkaline Phosphatase 96 U/L (46-116); Anion Gap 0.6 mmol/L (3-11); BUN 19 mg/dL (7-18); Bilirubin, Total 0.3 mg/dL (0.2-1.0); CO2 38.4 mmol/L (21.0-32.0); Calcium 9.1 mg/dL (8.5-10.1); Chloride 102 mmol/L (98-107); Estimated GFR 59.10 (mL/min/1.73m2); Glucose 90 mg/dL (74-106); Sodium 141 mmol/L (136-145); Total Protein 6.0 g/dL (6.4-8.2)
[2024-10-28 07:15] LABS: Potassium 4.9 mmol/L (3.5-5.1)
[2024-10-28] MEDS: POTASSIUM CHLORIDE/0.45% NACL 1,000 ML 100 MEQ IV (07:56)
[2024-10-28] MEDS: Albuterol/Ipratropium 3 ML UPD VIAL UPD ×3 (08:00→19:51)
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
[2024-10-28 09:49] LABS: BE (Venous) 12 mmol/L (-2-3); HCO3 (Venous) 37 mmol/L (23-28); O2 Sat (Venous) 37 %; TCO2 (Venous) 35 mmol/L (24-29); pO2 (Venous) 24 mmHg
[2024-10-28] MEDS: Enoxaparin 40 MG/0.4 ML SYR SC (09:52)
[2024-10-28] MEDS: Celecoxib 100 MG CAP PO ×2 (09:53→20:48)
[2024-10-28] MEDS: Multivitamin TAB 1 TAB PO (09:54)
[2024-10-28] MEDS: Pantoprazole 40 MG TABCR PO (09:54)
[2024-10-28] MEDS: Escitalopram 20 MG TAB PO (09:54)
[2024-10-28] MEDS: Roflumilast 500 MCG TAB PO (09:55)
[2024-10-28] MEDS: Gabapentin 400 MG CAP PO ×3 (09:55→20:48)
[2024-10-28] MEDS: hydroCHLOROthiazide 25 MG TAB PO (09:55)
[2024-10-28 09:59] LABS: pCO2 (Venous) 67 mmHg (41-51)
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
[2024-10-28] MEDS: Acetaminophen 325 MG TAB PO (20:48)
[2024-10-29 03:35] VITALS: BP 101/74; PULSE 72; RESP 18; TEMP 36.6; O2SAT 97
[2024-10-29 06:00] VITALS: O2SAT 93
[2024-10-29 07:21] VITALS: BP 111/79; PULSE 74; RESP 16; TEMP 36.3; O2SAT 98
[2024-10-29 08:34] VITALS: PULSE 97; RESP 12; O2SAT 95
[2024-10-29] MEDS: Albuterol/Ipratropium 3 ML UPD VIAL UPD (08:34)
[2024-10-29] MEDS: Enoxaparin 40 MG/0.4 ML SYR SC (08:39)
[2024-10-29] MEDS: Gabapentin 400 MG CAP PO (08:39)
[2024-10-29] MEDS: Multivitamin TAB 1 TAB PO (08:39)
[2024-10-29] MEDS: Roflumilast 500 MCG TAB PO (08:40)
[2024-10-29] MEDS: Escitalopram 20 MG TAB PO (08:40)
[2024-10-29] MEDS: Celecoxib 100 MG CAP PO (08:40)
[2024-10-29] MEDS: Simvastatin 10 MG TAB 5 MG PO (08:40)
[2024-10-29] MEDS: Bacitracin 1 PACKET TP (08:40)
[2024-10-29] MEDS: Pantoprazole 40 MG TABCR PO (08:40)
[2024-10-29] MEDS: hydroCHLOROthiazide 25 MG TAB PO (08:40)
[2024-10-29] MEDS: LORazepam 0.5 MG TAB PO ×2 (08:40→13:14)
[2024-10-29 11:21] VITALS: BP 118/80; PULSE 62; RESP 16; TEMP 36.6; O2SAT 96
[2024-10-29 11:31] VITALS: PULSE 89
[2024-10-29] MEDS: MORPHine Oral Solution 10 MG/5 ML CUP 5 MG PO (13:15)
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
== END 2024-10-29 14:34 | disposition home or self-care (01) ==
LOC: ER 17:49 → MS 20:44
PROVIDERS: Admitting Provider Hospitalist; Emergency Provider Emergency Medicine; PCP Nurse Practitioner Adult Health; Responsible Provider Family Medicine; Visit Provider Hospitalist
DX: T20.29XA Burn of second degree of multiple sites of head, face, and neck, initial encounter (principal); J44.9 Chronic obstructive pulmonary disease, unspecified; Z99.81 Dependence on supplemental oxygen; I10 Essential (primary) hypertension; I27.20 Pulmonary hypertension, unspecified; E78.5 Hyperlipidemia, unspecified; X17.XXXA Contact with hot engines, machinery and tools, initial encounter; E87.6 Hypokalemia; R91.1 Solitary pulmonary nodule; D63.8 Anemia in other chronic diseases classified elsewhere; Z87.891 Personal history of nicotine dependence; Z85.46 Personal history of malignant neoplasm of prostate; K44.9 Diaphragmatic hernia without obstruction or gangrene; F41.9 Anxiety disorder, unspecified; R73.01 Impaired fasting glucose; M54.42 Lumbago with sciatica, left side; F32.A Depression, unspecified; I73.9 Peripheral vascular disease, unspecified; L40.50 Arthropathic psoriasis, unspecified; Z86.711 Personal history of pulmonary embolism; Z95.828 Presence of other vascular implants and grafts; Z87.11 Personal history of peptic ulcer disease
CPT/HCPCS: 00123; 36415; 80053; 82805; 94640; 94761; 96372; 96374; 96375; 99285; J1650; 71045; 83735; 84484; 85025; 85610; 94760; 99222; 99231; 99238; G0378; J2270; J3010; J3480; J3490; J7620